=== PATIENT | female | born 1940 | race Caucasian/White ===

== ENCOUNTER → 2017-12-04 08:34 | Outpatient (CLI) | payer SELFPAY ==
[2017-12-04 09:31] LABS: Add Manual Diff / Slide Review NO; Basophils Percent Auto 1.3 % (0-2); Eosinophils Percent Auto 4.7 % (2-4); Hematocrit 40.7 % (36-46); Hemoglobin 13.9 g/dL (12.0-16.0); Lymphocytes Percent Auto 42.2 % (25-40); Mean Corpuscular HGB Conc 34.2 % (30-36); Mean Corpuscular Hemoglobin 31.1 PG (26-34); Monocytes Percent Auto 10.3 % (3-14); Neutrophils Absolute Auto 2300 /uL (3000-5900); Neutrophils Percent Auto 41.5 % (50-75); Platelet Count 260 X10^3/uL (150-400); Red Blood Cell Count 4.47 X10^6/uL (4.0-5.2); Red Cell Distribution Width 12.8 % (11.6-14.8); White Blood Cell Count 5.5 X10^3/uL (4.5-11.0)
[2017-12-04 10:27] LABS: Vitamin D 25 Hydroxy (D3) 47.2 ng/mL (30.0-100.0)
[2017-12-04 10:42] LABS: Thyroid Stimulating Hormone 2.91 uIU/mL (0.47-4.68)
[2017-12-04 13:41] LABS: Free T3, Triiodothyronine Free 3.55 pg/mL (2.77-5.27); Free T4, Direct Thyroxine 1.34 ng/dL (0.78-2.19)
== END ==
PROVIDERS: PCP Physician Assistant
DX: R53.83 Other fatigue (principal)
CPT/HCPCS: 36415; 82306; 82728; 84439; 84443; 84481; 85025

== ENCOUNTER 2018-03-09 11:37 | Emergency (ER) | payer MEDICARE, OTHER, SELFPAY ==
[2018-03-09 11:47] VITALS: BP 194/71; PULSE 73; RESP 17; TEMP 36.4; O2SAT 100; BMI 24.7
--- NOTE | 2018-03-09 11:55 | DI.RAD.S_ITS ---
PROCEDURE: XR CHEST 1V INDICATIONS: chest pain TECHNIQUE: One view of the chest was acquired. COMPARISON: [facility], , CHEST 1 VIEW, 01/16/2017, 18:02. FINDINGS: Surgical changes and devices: None. Lungs and pleura: No pleural effusions or pneumothorax. Lungs are clear. Mediastinum: Mediastinal contours appear normal. Heart size is normal. Bones and chest wall: No suspicious bony lesions. Overlying soft tissues appear unremarkable. IMPRESSION: Chest pain is not seen. Dictated by: Flo Kitchen M.D. on 03/09/2018 at 12:28 Approved by: Flo Kitchen M.D. on 03/09/2018 at 12:28
[2018-03-09 12:09] LABS: Add Manual Diff / Slide Review NO; Basophils Percent Auto 0.9 % (0-2); Eosinophils Percent Auto 1.8 % (2-4); Hematocrit 39.4 % (36-46); Hemoglobin 13.2 g/dL (12.0-16.0); Lymphocytes Percent Auto 31.4 % (25-40); Mean Corpuscular HGB Conc 33.4 % (30-36); Mean Corpuscular Hemoglobin 30.9 PG (26-34); Mean Corpuscular Volume 92.3 fL (80-100); Monocytes Percent Auto 8.3 % (3-14); Neutrophils Absolute Auto 3700 /uL (3000-5900); Neutrophils Percent Auto 57.6 % (50-75); Platelet Count 250 X10^3/uL (150-400); Red Blood Cell Count 4.27 X10^6/uL (4.0-5.2); Red Cell Distribution Width 13.3 % (11.6-14.8); White Blood Cell Count 6.4 X10^3/uL (4.5-11.0)
--- NOTE | 2018-03-09 12:12 | ED_ITS ---
HPI - Chest Pain <Antonietta Beltre PA-C - Last Filed: 03/09/18 22:07> General Chief Complaint: Chest Pain Stated Complaint: 'SOMETHING FUNNY IN CHEST' Time Seen by Provider: 03/09/18 12:09 Source: patient Mode of arrival: ambulatory Limitations: no limitations History of Present Illness HPI narrative: This 77-year-old female comes in today due to which she describes as a mild ache in her chest over a week. She describes this as around the ?esophagus? and points to mid and upper sternal area. She states that she has not had any associated dyspnea, lightheadedness, wheeze, nausea or vomiting and states ?I am eating way to well?. She states pain does not radiate. She states that she will occasionally notice a single hard heartbeat, otherwise no palpitations. She states that pain worsens up it after she eats certain foods such as caffeine, spicy food, or chocolate. She states it also worsens if she has to think about driving a long distance (notes that she has been driving to [facility] a couple of times weekly for physical therapy). She states that pain is better when she is around people and active. Then she does not tend to notice it, does not keep her from activity. She tends to notice more when she is quiet or at night. She denies any other new symptoms on systems review such as pain or swelling in her extremities. She does note that she has a history of anxiety and wonders whether this could be related as she has had some increase in stress. She does have some history of acid reflux occasionally and is careful not to eat before bedtime. She states that she has tried half of a Xanax couple of times which she takes occasionally and that does seem to help. Related Data Home Medications Medication Instructions Recorded Confirmed ascorbic acid (vitamin C) [Vitamin 1 g PO BID 03/09/18 03/09/18 C] cholecalciferol (vitamin D3) 5,000 unit PO DAILY 03/09/18 03/09/18 [Vitamin D3] multivitamin 1 tab PO DAILY 03/09/18 03/09/18 omega 6-yfy-gps-fish oil [Fish Oil] 1,000 mg PO BID 03/09/18 03/09/18 resveratrol 1 cap PO QPM 10/10/18 10/10/18 Allergies Allergy/AdvReac Type Severity Reaction Status Date / Time Sulfa (Sulfonamide Allergy Unknown Verified 10/14/17 08:03 Antibiotics) [SULFA (SULFONAMIDE ANTIBIOTICS)] adhesive tape Allergy Verified 10/14/17 08:04 Review of Systems <Antonietta Beltre PA-C - Last Filed: 03/09/18 22:07> Review of Systems All systems reviewed & are unremarkable except as noted in HPI and below PFSH <ALEX Merino Last Filed: 03/09/18 22:07> Comment: Quit late , denies ETOH or street drugs Exam <Antonietta Beltre PA-C - Last Filed: 03/09/18 22:07> Narrative Exam Narrative: GENERAL APPEARANCE: Patient sitting comfortably, in no distress , appears well. HEENT: PERRL, EOMI, conjunctiva, normal oropharynx NECK/THYROID: Neck supple, no JVD. LUNGS: Clear to auscultation bilaterally. HEART: Regular rate and rhythm without murmur, normal S1, S2, no S3 or S4. ABDOMEN: Soft, NT, ND, + BS x 4 quadrants EXTREMITIES: No cyanosis or edema. No calf tenderness NEUROLOGIC: Alert and oriented, normal speech, gait and coordination. Initial Vital Signs Initial Vital Signs: Vital Signs Temperature 97.5 F L 03/09/18 11:47 Pulse Rate 73 03/09/18 11:47 Respiratory Rate 17 03/09/18 11:47 Blood Pressure 194/71 H 03/09/18 11:47 Pulse Oximetry 100 03/09/18 11:47 <Nikhil Mansfield DO - Last Filed: 03/10/18 15:42> Initial Vital Signs Initial Vital Signs: Vital Signs Temperature 97.5 F L 03/09/18 11:47 Pulse Rate 73 03/09/18 11:47 Respiratory Rate 17 03/09/18 11:47 Blood Pressure 194/71 H 03/09/18 11:47 Pulse Oximetry 100 03/09/18 11:47 Scores <ALEX Merino Last Filed: 03/09/18 22:07> HEART Score Heart Score history: Slightly Suspicious Heart Score EKG: Normal Heart Score Age: > or = 65 years old Heart Score risk factors: No known risk factors Heart Score troponin: < or = to normal limit Heart Score Total: 2 Course <Antonietta Beltre PA-C - Last Filed: 03/09/18 22:07> Additional Information: Patient reported some improvement after GI cocktail though she was not having much discomfort. She did report a couple of skipped heartbeats correlating with what look like either 2 or 3 premature beat versus a very brief run of atrial fibrillation. Discussed follow-up with PCP to talk about placing a Holter monitor or [employer] type monitor that she can activate when symptomatic. She is agreeable with this as well as plan to start ASA and Pepcid in the interim, and to return if any acutely worsening symptoms or new symptoms in the interim Orders Ordered: Discontinued Medications Al Hydrox/Mg Hydrox/Simethicone 20 ml/ Lidocaine HCl 15 ml 0 ml PO NOW ONE Stop: 03/09/18 12:28 Last Admin: 03/09/18 12:34 Dose: 35 ml Vital Signs - 8 hr 03/09/18 14:51 Temperature 97.8 F Pulse Rate 71 Respiratory Rate 16 Blood Pressure 161/62 H Pulse Oximetry 98 <Nikhil Mansfield DO - Last Filed: 03/10/18 15:42> Orders Ordered: Discontinued Medications Al Hydrox/Mg Hydrox/Simethicone 20 ml/ Lidocaine HCl 15 ml 0 ml PO NOW ONE Stop: 03/09/18 12:28 Last Admin: 03/09/18 12:34 Dose: 35 ml Vital Signs - 8 hr 03/09/18 14:51 Temperature 97.8 F Pulse Rate 71 Respiratory Rate 16 Blood Pressure 161/62 H Pulse Oximetry 98 MDM - Chest Pain <Antonietta Beltre PA-C - Last Filed: 03/09/18 22:07> Lab Data Result diagrams: 03/09/18 11:58 03/09/18 11:58 Lab Results 03/09/18 03/09/18 Range/Units 11:58 11:58 WBC 6.4 (4.5-11.0) X10^3/uL RBC 4.27 (4.0-5.2) X10^6/uL Hgb 13.2 (12.0-16.0) g/dL Hct 39.4 (36-46) % MCV 92.3 (80-100) fL MCH 30.9 (26-34) PG MCHC 33.4 (30-36) % RDW 13.3 (11.6-14.8) % Plt Count 250 (150-400) X10^3/uL Neut % (Auto) 57.6 (50-75) % Lymph % (Auto) 31.4 (25-40) % Guthrie % (Auto) 8.3 (3-14) % Eos % (Auto) 1.8 L (2-4) % Baso % (Auto) 0.9 (0-2) % Neut # (Auto) 3700 (6353-4709) /uL Sodium 143 (137-145) mmol/L Potassium 4.1 (3.4-5.1) mmol/L Chloride 105 (98-107) mmol/L Carbon Dioxide 28 (22-32) mmol/L BUN 29 H (7-17) mg/dL Creatinine 0.70 (0.52-1.04) mg/dL Estimated GFR > 60.0 (>60) mL/min BUN/Creatinine Ratio 41.4 H (6-22) Glucose 92 (80-110) mg/dL Calcium 10.1 (8.4-10.2) mg/dL Troponin I < 0.012 (0.01-0.034) ng/mL Lipase 83 (23-300) U/L Imaging Data Chest x-ray: Radiologist's impression: [address] [address] XRay Report Signed Patient: Trinidad Linton EMR#: [id number] : 8Acct:[id number] Age/Sex: 77 / FDate of Service: 03/09/18 Loc: ED Accession Number: [id number] Procedure: XR chest 1V Ordering Provider: Nikhil Mansfield D.O. PROCEDURE: XR CHEST 1V INDICATIONS: chest pain TECHNIQUE: One view of the chest was acquired. COMPARISON: [facility], CHEST 1 VIEW, 01/16/2017, 18:02. FINDINGS: Surgical changes and devices: None. Lungs and pleura: No pleural effusions or pneumothorax. Lungs are clear. Mediastinum: Mediastinal contours appear normal. Heart size is normal. Bones and chest wall: No suspicious bony lesions. Overlying soft tissues appear unremarkable. IMPRESSION: Chest pain is not seen. Dictated by: Flo Kitchen M.D. on 03/09/2018 at 12:28 Approved by: Flo Kitchen M.D. on 03/09/2018 at 12:28 ECG Data Attestation: I personally reviewed and interpreted this ECG as follows: (Normal sinus rhythm with rate 68, LAD some old Q-waves present in the anterior leads, unchanged from 03/16) Prior ECG tracings: available for review <Nikhil Mansfield DO - Last Filed: 03/10/18 15:42> Lab Data Lab Results 03/09/18 03/09/18 Range/Units 11:58 11:58 WBC 6.4 (4.5-11.0) X10^3/uL RBC 4.27 (4.0-5.2) X10^6/uL Hgb 13.2 (12.0-16.0) g/dL Hct 39.4 (36-46) % MCV 92.3 (80-100) fL MCH 30.9 (26-34) PG MCHC 33.4 (30-36) % RDW 13.3 (11.6-14.8) % Plt Count 250 (150-400) X10^3/uL Neut % (Auto) 57.6 (50-75) % Lymph % (Auto) 31.4 (25-40) % Guthrie % (Auto) 8.3 (3-14) % Eos % (Auto) 1.8 L (2-4) % Baso % (Auto) 0.9 (0-2) % Neut # (Auto) 3700 (1415-4992) /uL Sodium 143 (137-145) mmol/L Potassium 4.1 (3.4-5.1) mmol/L Chloride 105 (98-107) mmol/L Carbon Dioxide 28 (22-32) mmol/L BUN 29 H (7-17) mg/dL Creatinine 0.70 (0.52-1.04) mg/dL Estimated GFR > 60.0 (>60) mL/min BUN/Creatinine Ratio 41.4 H (6-22) Glucose 92 (80-110) mg/dL Calcium 10.1 (8.4-10.2) mg/dL Troponin I < 0.012 (0.01-0.034) ng/mL Lipase 83 (23-300) U/L Discharge Plan Departure Patient Disposition: Home Clinical Impression: Chest pain at rest, Intermittent palpitations, Acid reflux Discharge Date/Time: 03/09/18 14:52 Interventions: ED Discharge Assessment Last Done: 03/09/18 14:51 Instructions: DI for Atypical Chest Pain, DI for Palpitations Activity Restrictions/Additional Instructions: Your chest pain does not appear to be related to lack of oxygen/heart attack type symptoms today on your exam findings or studies. You do have some premature heartbeats noted rarely on your rhythm testing, and as we talked about , you should see your PCP about getting a monitor for this, you should follow- up within a week or less. You should return as we talked about if you have any acutely worsening symptoms in the interim. Since you have had some reflux symptoms and food sensitivities maybe making this worse, please start taking Pepcid (famotidine) 20 mg once daily. Please take a baby aspirin once daily as well while you are waiting for further workup on the skipped heartbeats. Continue your Xanax if you needed, and please keep track for your PCP of whether this is helpful for your symptoms or whether you notice few or skipped heart beats when you take that. Prescriptions: No Action multivitamin Tablet 1 tab PO DAILY RF: 0 ascorbic acid (vitamin C) [Vitamin C] 1,000 mg Tablet 1 g PO BID RF: 0 cholecalciferol (vitamin D3) [Vitamin D3] 5,000 unit Tablet 5,000 unit PO DAILY RF: 0 omega 2-nau-atf-fish oil [Fish Oil] 1,000 mg (120 mg-180 mg) Capsule 1,000 mg PO BID RF: 0 resveratrol 1 cap PO QPM RF: 0 Referrals: [facility] [Outside] Kelly Mccormick PA-C [Advanced Surgery Specialist] - <Nikhil Mansfield DO - Last Filed: 03/10/18 15:42> Cosign ED Attending Ana Maria Attestation: I was available for consultation for this patients ED stay.
[2018-03-09 12:20] LABS: BUN Creatinine Ratio 41.4 (6-22); Blood Urea Nitrogen 29 mg/dL (7-17); Calcium 10.1 mg/dL (8.4-10.2); Carbon Dioxide 28 mmol/L (22-32); Chloride 105 mmol/L (98-107); Estimated Glomerular Filt Rate > 60.0 mL/min (>60); Glucose 92 mg/dL (80-110); HEMOLYSIS < 15 (0-50); Potassium 4.1 mmol/L (3.4-5.1); Sodium 143 mmol/L (137-145)
[2018-03-09 12:30] VITALS: BP 189/63; PULSE 61; RESP 18; O2SAT 99
[2018-03-09] MEDS: MAG HYDROX/ALUMINUM/SIMETH SUS 20 ML, LIDOCAINE VISCOUS 2% 15 ML PO (12:34)
[2018-03-09 12:36] LABS: Troponin I < 0.012 ng/mL (0.01-0.034)
[2018-03-09 13:00] VITALS: BP 161/61; PULSE 62; PULSE 63; RESP 15; RESP 16; O2SAT 98; O2SAT 99
[2018-03-09 13:30] VITALS: BP 158/60; PULSE 65; RESP 15; O2SAT 95
[2018-03-09 13:41] LABS: Lipase 83 U/L (23-300)
[2018-03-09 14:00] VITALS: BP 175/57; PULSE 66; PULSE 70; RESP 16; RESP 17; O2SAT 96; O2SAT 98
[2018-03-09 14:51] VITALS: BP 161/62; PULSE 71; RESP 16; TEMP 36.6; O2SAT 98
== END 2018-03-09 14:52 | disposition home or self-care (01) ==
PROVIDERS: Emergency Medicine; Emergency Provider Internal Medicine
DX: R07.9 Chest pain, unspecified (principal); R00.2 Palpitations; K21.9 Gastro-esophageal reflux disease without esophagitis
CPT/HCPCS: 36591; 71045; 80048; 83690; 84484; 85025; 93005; 99283; 99285

== ENCOUNTER 2018-07-07 19:09 | Emergency (ER) | payer MEDICARE, OTHER, SELFPAY ==
[2018-07-07 19:13] VITALS: BP 182/91; PULSE 107; RESP 16; TEMP 36.1; O2SAT 100; BMI 25.6
--- NOTE | 2018-07-07 19:17 | DI.RAD.S_ITS ---
PROCEDURE: XR CHEST 2V INDICATIONS: fell onto chest TECHNIQUE: 2 views of the chest were acquired. COMPARISON: None. FINDINGS: Surgical changes and devices: None. Lungs and pleura: Lungs are clear. No pleural effusions or pneumothorax. Mediastinum: Mediastinal contours are normal. Heart size is normal. Bones and chest wall: No suspicious bony abnormalities. Soft tissues appear unremarkable. IMPRESSION: No pneumothorax seen, no trauma found. Dictated by: Flo Kitchen M.D. on 07/07/2018 at 20:00 Approved by: Flo Kitchen M.D. on 07/07/2018 at 20:00
--- NOTE | 2018-07-07 20:07 | ED_ITS ---
HPI - Fall General Chief Complaint: Fall Stated Complaint: guanaco hit her face Time Seen by Provider: 07/07/18 19:46 Source: patient Mode of arrival: ambulatory Limitations: no limitations History of Present Illness HPI Narrative: patient is a mil[place] 78-year-old female who presents with sternal chest pain. She says that she tripped and fell on a chair, landing directly on her sternum. She has no shortness of breath it hurts when she breathes is and touches it. This happened 1 hr ago. No other injuries. She did not hit her head is no extremity Onset (ago): hour(s) (1) Fall from: standing Fall witnessed: no Place fall occurred: home Loss of consciousness: none Prolonged down time: no Symptoms prior to fall: none Context: tripped/slipped Location of injury: chest Related Data Home Medications Medication Instructions Recorded Confirmed ascorbic acid (vitamin C) [Vitamin 1 g PO BID 03/09/18 03/15/18 C] cholecalciferol (vitamin D3) 5,000 unit PO DAILY 03/09/18 03/15/18 [Vitamin D3] multivitamin 1 tab PO DAILY 03/09/18 03/15/18 omega 4-wuo-dft-fish oil [Fish Oil] 1,000 mg PO BID 03/09/18 03/15/18 resveratrol 1 cap PO QPM 03/09/18 03/15/18 alprazolam 0.25 mg tablet 0.25 mg PO BID 03/15/18 03/15/18 Previous Rx's Medication Instructions Recorded propranolol 10 mg tablet 10 mg PO BID #60 tab 03/15/18 Allergies Allergy/AdvReac Type Severity Reaction Status Date / Time Sulfa (Sulfonamide Allergy Unknown Verified 07/07/18 19:13 Antibiotics) [SULFA (SULFONAMIDE ANTIBIOTICS)] adhesive tape Allergy Verified 10/14/17 08:04 Review of Systems Review of Systems ROS Unobtainable: All systems reviewed & are unremarkable except as noted in HPI and below Cardiovascular Reports chest pain, Denies dyspnea and Denies dyspnea on exertion Respiratory Denies cough, Denies dyspnea, Denies dyspnea on exertion and Denies wheezing Gastrointestinal Gastrointestinal: Denies abdominal pain, Denies change in bowel habits, Denies diarrhea, Denies nausea and Denies vomiting Musculoskeletal Denies back pain, Denies muscle weakness, Denies numbness and Denies tingling Integumentary/Breasts Denies pruritus, Denies erythema, Denies rash and Denies wounds Neurologic Denies numbness and Denies tingling Allergic/Immunologic Denies wheezing Exam Initial Vital Signs Initial Vital Signs: Vital Signs Temperature 97.0 F L 07/07/18 19:13 Pulse Rate 107 H 07/07/18 19:13 Respiratory Rate 16 07/07/18 19:13 Blood Pressure 182/91 H 07/07/18 19:13 Pulse Oximetry 100 07/07/18 19:13 GENERAL: Alert well-appearing elderly feet HEENT: Head atraumatic,EOMI, pupils reactive, face symmetric, neck is supple CARDIOVASCULAR: Regular rate and rhythm without murmurs, rubs or gallops. sternum is tenderness no sign of trauma no bruising no rib pain RESPIRATORY: Breath sounds equal bilaterally, no wheezes rales or rhonchi. ABDOMEN: Soft, nontender. Normoactive bowel sounds all 4 quadrants. No guarding or rebound. : No CVA tenderness EXTREMITIES: Normal range of motion, no clubbing or edema. Neurovascularly intact NEUROLOGICAL: Alert and oriented x4.Normal gait and speech. Cranial nerves II through XII grossly intact. [Good [id number], good kgld-su-vjus, strength equal bilaterally, no dysarthria or aphasia, sensation in tact to soft touch bilaterally, no visual changes, no facial droop] SKIN: Warm, dry, no laceration, no petechiae, no rashes or lesions. [facility] Medical History Anxiety (Chronic) Mild acid reflux (Chronic) Surgical History H/O partial thyroidectomy (Resolved) History of carpal tunnel repair Status post hysterectomy Family History Father Diabetes mellitus Mother Ovarian cancer Social History Smoking Status: Former smoker Family History Father Diabetes mellitus Mother Ovarian cancer Social History Smoking Status: Former smoker Course Orders Ordered: ED Orders 07/07/18 19:17 Chest [XR chest 2V] Stat Vital Signs - 8 hr 07/07/18 19:13 Temperature 97.0 F L Pulse Rate 107 H Respiratory Rate 16 Blood Pressure 182/91 H Pulse Oximetry 100 MDM - Fall Imaging Data Chest x-ray: Radiologist's impression: PROCEDURE: XR CHEST 2V INDICATIONS: fell onto chest TECHNIQUE: 2 views of the chest were acquired. COMPARISON: None. FINDINGS: Surgical changes and devices: None. Lungs and pleura: Lungs are clear. No pleural effusions or pneumothorax. Mediastinum: Mediastinal contours are normal. Heart size is normal. Bones and chest wall: No suspicious bony abnormalities. Soft tissues appear unremarkable. IMPRESSION: No pneumothorax seen, no trauma found. Dictated by: Flo Kitchen M.D. on 07/07/2018 at 20:00 Discharge Plan Departure Patient Disposition: Home Clinical Impression: Contusion of sternum Qualifiers: Encounter type: initial encounter Qualified Code(s): S20.20XA - Contusion of thorax, unspecified, initial encounter Discharge Date/Time: 07/07/18 20:12 Interventions: ED Discharge Assessment Last Done: 07/07/18 20:11 Instructions: DI for Sternum Contusion Activity Restrictions/Additional Instructions: *You have been diagnosed with sternal pain contusion *What to do: rest, ice *Continue to take medications as directed Tylenol 650 mg every 4-6 hours if needed for pain ibuprofen 400 mg every 6-8 hours if needed for pain *Follow up with your primary care provider in 2-3 days *Return to ER if you should have any new, worsening or concerning symptoms Prescriptions: No Action alprazolam 0.25 mg tablet 0.25 mg PO BID RF: 0 propranolol 10 mg tablet 10 mg PO BID Qty: 60 RF: 3 multivitamin Tablet 1 tab PO DAILY RF: 0 ascorbic acid (vitamin C) [Vitamin C] 1,000 mg Tablet 1 g PO BID RF: 0 cholecalciferol (vitamin D3) [Vitamin D3] 5,000 unit Tablet 5,000 unit PO DAILY RF: 0 omega 3-vvj-nvc-fish oil [Fish Oil] 1,000 mg (120 mg-180 mg) Capsule 1,000 mg PO BID RF: 0 resveratrol 1 cap PO QPM RF: 0 Referrals: Jayson Marr MD [Primary Care Provider] -
== END 2018-07-07 20:12 | disposition home or self-care (01) ==
PROVIDERS: Emergency Provider Emergency Medicine; PCP Student in an Organized Health Care Education/Training Program
DX: S20.20XA Contusion of thorax, unspecified, initial encounter (principal); W01.0XXA Fall on same level from slipping, tripping and stumbling without subsequent striking against object, initial encounter
CPT/HCPCS: 71046; 99282; 99283

== ENCOUNTER 2018-07-12 15:49 | Emergency (ER) | payer MEDICARE, OTHER, SELFPAY ==
[2018-07-12 16:03] VITALS: BP 188/84; PULSE 109; RESP 16; TEMP 36.2; O2SAT 99; BMI 25.6
--- NOTE | 2018-07-12 16:17 | PC.NURSE ---
pt requested not to be seen by dr harden.
[2018-07-12 18:54] VITALS: BP 187/69; PULSE 105; RESP 19; O2SAT 96
--- NOTE | 2018-07-12 19:05 | ED_ITS ---
HPI - Headache <EDWIN Goode - Last Filed: 07/12/18 21:40> General Chief Complaint: Headache Stated Complaint: HEADACHE FLUSHED FACE Time Seen by Provider: 07/12/18 19:12 Source: patient Mode of arrival: ambulatory Limitations: no limitations History of Present Illness HPI Narrative: 78-year-old female with history migraine headaches and is a nonsmoker here for complaint of having pain to her right ribcage and right lower ribcage/abdominal area after a fall several days ago. She was seen here in the emergency room and had x-rays of the right ribcage she was negative for any fractures. She reports that the pain has not resolved. She also reports she has headache pain as well. She denies any head injury during the fall however she does state that her head did get stabbed pretty good. She denies being on any blood thinners. She denies any stressors or relievers of her pain. She is ambulatory into the emergency room. Patient also requests she has carbon monoxide testing as she has been using her propane fireplace more with the cold weather. No other concerns or complaints at this timeframe. She denies any neck pain. MD Complaint: headache Related Data Home Medications Medication Instructions Recorded Confirmed ascorbic acid (vitamin C) [Vitamin 1 g PO BID 03/09/18 03/15/18 C] cholecalciferol (vitamin D3) 5,000 unit PO DAILY 03/09/18 03/15/18 [Vitamin D3] multivitamin 1 tab PO DAILY 03/09/18 03/15/18 omega 5-jwj-hgq-fish oil [Fish Oil] 1,000 mg PO BID 03/09/18 03/15/18 resveratrol 1 cap PO QPM 03/09/18 03/15/18 alprazolam 0.25 mg tablet 0.25 mg PO BID 03/15/18 03/15/18 Previous Rx's Medication Instructions Recorded propranolol 10 mg tablet 10 mg PO BID #60 tab 03/15/18 Allergies Allergy/AdvReac Type Severity Reaction Status Date / Time Sulfa (Sulfonamide Allergy Unknown Verified 07/12/18 16:08 Antibiotics) [SULFA (SULFONAMIDE ANTIBIOTICS)] adhesive tape Allergy Verified 07/12/18 16:08 Review of Systems <EDWIN Goode - Last Filed: 07/12/18 21:40> Constitutional Denies chills, Denies fatigue, Denies fever(s), Denies lethargy and Denies wea kness Eyes Denies change in vision, Denies eye discharge, Denies irritation and Denies loss of vision ENT Ears, Nose, Mouth, and Throat: Denies change in voice, Denies neck pain and Denies sore throat Cardiovascular Denies dyspnea and Denies dyspnea on exertion Respiratory Denies cough, Denies dyspnea, Denies dyspnea on exertion and Denies wheezing Gastrointestinal Comments: Pain into a right upper quadrant/right ribcage area Genitourinary Denies hematuria, Denies flank pain, Denies urinary incontinence and Denies urinary urgency Musculoskeletal Denies neck pain Integumentary/Breasts Denies pruritus, Denies erythema, Denies rash and Denies wounds Neurologic Denies confusion, Denies loss of vision and Denies weakness Comments: headache Psychiatric Denies anxiety, Denies confusion, Denies depression, Denies homicidal ideation and Denies suicidal ideation Endocrine Denies fatigue and Denies flushing Hematologic/Lymphatic Denies easy bruising Allergic/Immunologic Denies wheezing PFSH <EDWIN Goode - Last Filed: 07/12/18 21:40> Social History Smoking Status: Former smoker Exam <EDWIN Goode - Last Filed: 07/12/18 21:40> Initial Vital Signs Initial Vital Signs: Vital Signs Temperature 97.1 F L 07/12/18 16:03 Pulse Rate 109 H 07/12/18 16:03 Respiratory Rate 16 07/12/18 16:03 Blood Pressure 188/84 H 07/12/18 16:03 Pulse Oximetry 99 07/12/18 16:03 Const General: cooperative and well developed Nutritional Appearance: well nourished Orientation: alert, awake, oriented x3 and not confused [facility] Head: normal to inspection, normocephalic, atraumatic, No Drummond's sign, No contusion, No hematoma, No laceration, No palpable skull fracture, No raccoon eyes, No scalp lesion and No scalp tenderness Mouth: oral mucosae normal and moist mucous membranes Throat: posterior oropharynx normal Eyes General: appearance normal, both eyes and all related structures Eyelids: eyelids normal Conjunctivae: conjunctivae normal Sclera: sclerae normal Pupils: PERRL EOM: EOM intact bilaterally Neck Neck: normal visual inspection, trachea midline, No lymphadenopathy, No midline deformity and No JVD Lymphatic: No lymphedema Chest Other: Tenderness to the right lateral ribcage. No signs of trauma. No ec chymosis. No deformities. Resp Effort & Inspection: normal respiratory effort, able to speak in complete sentences, no respiratory distress and no use of accessory muscles Auscultation: clear to auscultation bilaterally, no rales, no rhonchi and no wheezes Cardio Rate: regular rate Rhythm: regular rhythm Heart Sounds: no click, no gallops, no murmurs and no rubs Pulses: normal peripheral pulses GI Inspection: non-distended Palpation: soft, no hepatosplenomegaly, No guarding, No pulsatile mass and No tender Auscultation: normal bowel sounds Other: Tenderness on palpation to right Skin General: no rashes or lesions noted, No jaundice and No petechiae Neuro General: alert, oriented x3, gait normal and no focal motor deficits Speech: speech normal <Pilar Szymanski DO - Last Filed: 07/13/18 02:33> Initial Vital Signs Initial Vital Signs: Vital Signs Temperature 97.1 F L 07/12/18 16:03 Pulse Rate 109 H 07/12/18 16:03 Respiratory Rate 16 07/12/18 16:03 Blood Pressure 188/84 H 07/12/18 16:03 Pulse Oximetry 99 07/12/18 16:03 Course <EDWIN Goode - Last Filed: 07/12/18 21:40> Orders Ordered: ED Orders 07/12/18 19:23 CT abdomen pelvis w con Stat CT head/brain wo con Stat 07/12/18 19:45 Complete Blood Count AUTO DIFF Stat Comprehensive Metabolic Panel Stat [facility] Miscellaneous Stat Urine Culture Stat Urine Microscopic Stat Discontinued Medications Oxymetazoline HCl (Afrin) 2 sprays NASAL NOW ONE Stop: 07/12/18 20:29 Last Admin: 07/12/18 20:48 Dose: 2 sprays Vital Signs - 8 hr 07/12/18 18:54 07/12/18 19:50 07/12/18 21:40 Pulse Rate 105 H 91 H 90 Respiratory Rate 19 18 16 Blood Pressure 171/72 H Blood Pressure [Right Arm] 187/69 H 170/76 H Pulse Oximetry 96 96 97 <Pilar Szymanski DO - Last Filed: 07/13/18 02:33> Orders Ordered: ED Orders 07/12/18 19:23 CT abdomen pelvis w con Stat CT head/brain wo con Stat 07/12/18 19:45 Complete Blood Count AUTO DIFF Stat Comprehensive Metabolic Panel Stat [facility] Miscellaneous Stat Urine Culture Stat Urine Microscopic Stat Discontinued Medications Oxymetazoline HCl (Afrin) 2 sprays NASAL NOW ONE Stop: 07/12/18 20:29 Last Admin: 07/12/18 20:48 Dose: 2 sprays Vital Signs - 8 hr 07/12/18 18:54 07/12/18 19:50 07/12/18 21:40 Pulse Rate 105 H 91 H 90 Respiratory Rate 19 18 16 Blood Pressure 171/72 H Blood Pressure [Right Arm] 187/69 H 170/76 H Pulse Oximetry 96 96 97 MDM - Headache <EDWIN Goode - Last Filed: 07/12/18 21:40> Lab Data Result diagrams: 07/12/18 19:45 07/12/18 19:45 Lab Results 07/12/18 07/12/18 07/12/18 Range/Units 19:45 19:45 19:45 WBC 7.2 (4.5-11.0) X10^3/uL RBC 4.67 (4.0-5.2) X10^6/uL Hgb 14.7 (12.0-16.0) g/dL Hct 42.6 (36-46) % MCV 91.3 (80-100) fL MCH 31.5 (26-34) PG MCHC 34.4 (30-36) % RDW 12.8 (11.6-14.8) % Plt Count 291 (150-400) X10^3/uL Neut % (Auto) 57.2 (50-75) % Lymph % (Auto) 31.4 (25-40) % [place] % (Auto) 8.9 (3-14) % Eos % (Auto) 1.5 L (2-4) % Baso % (Auto) 1.0 (0-2) % Neut # (Auto) 4100 (9241-3621) /uL Lymph # (Auto) 2300 (7813-6054) /uL [place] # (Auto) 600 (0-900) /uL Eos # (Auto) 100 (0-450) /uL Baso # (Auto) 100 (0-100) /uL Carboxyhemoglobin Cancelled Sodium 142 (137-145) mmol/L Potassium 3.7 (3.4-5.1) mmol/L Chloride 103 (98-107) mmol/L Carbon Dioxide 27 (22-32) mmol/L BUN 21 H (7-17) mg/dL Creatinine 0.90 (0.52-1.04) mg/dL Estimated GFR > 60.0 (>60) mL/min BUN/Creatinine Ratio 23.3 H (6-22) Glucose 97 (80-110) mg/dL Calcium 10.0 (8.4-10.2) mg/dL Total Bilirubin 0.5 (0.2-1.3) mg/dL AST 33 (14-36) IU/L ALT 45 (9-52) IU/L Alkaline Phosphatase 74 (38-126) U/L Total Protein 8.3 H (6.3-8.2) g/dL Albumin 4.8 (3.5-5.0) g/dL Globulin 3.5 (1.7-4.1) g/dL Albumin/Globulin Ratio 1.4 (1.0-2.8) Urine RBC (0-5/HPF) Urine WBC (0-5/HPF) Urine Bacteria (None) Ur Culture Indicated? 07/12/18 Range/Units 19:45 WBC (4.5-11.0) X10^3/uL RBC (4.0-5.2) X10^6/uL Hgb (12.0-16.0) g/dL Hct (36-46) % MCV (80-100) fL MCH (26-34) PG MCHC (30-36) % RDW (11.6-14.8) % Plt Count (150-400) X10^3/uL Neut % (Auto) (50-75) % Lymph % (Auto) (25-40) % [place] % (Auto) (3-14) % Eos % (Auto) (2-4) % Baso % (Auto) (0-2) % Neut # (Auto) (0230-6886) /uL Lymph # (Auto) (5215-8328) /uL [place] # (Auto) (0-900) /uL Eos # (Auto) (0-450) /uL Baso # (Auto) (0-100) /uL Carboxyhemoglobin Sodium (137-145) mmol/L Potassium (3.4-5.1) mmol/L Chloride (98-107) mmol/L Carbon Dioxide (22-32) mmol/L BUN (7-17) mg/dL Creatinine (0.52-1.04) mg/dL Estimated GFR (>60) mL/min BUN/Creatinine Ratio (6-22) Glucose (80-110) mg/dL Calcium (8.4-10.2) mg/dL Total Bilirubin (0.2-1.3) mg/dL AST (14-36) IU/L ALT (9-52) IU/L Alkaline Phosphatase (38-126) U/L Total Protein (6.3-8.2) g/dL Albumin (3.5-5.0) g/dL Globulin (1.7-4.1) g/dL Albumin/Globulin Ratio (1.0-2.8) Urine RBC None seen (0-5/HPF) Urine WBC 5-10/hpf H (0-5/HPF) Urine Bacteria None seen (None) Ur Culture Indicated? Specimen cultured Urine Dip Bedside Urine Glucose Negative Bedside Urine Bilirubin - Negative Bedside Urine Ketone - Negative Urine Specific [place] 1.010 Bedside Urine Occult Blood - Negative Bedside Urine pH 6.0 Bedside Urine Protein - Negative Bedside Urine Urobilinogen - Negative Bedside Urine Nitrite - Negative Bedside Urine Leukocytes +/- [address] scan - head: Radiologist's impression: [address] [place] [id number] Scan Report Signed Patient: Trinidad Linton EMR#: [id number] : 8Acct:[id number] Age/Sex: 78 / FDate of Service: 07/12/18 Loc: ED Accession Number: [id number] Procedure: CT head/brain wo con Ordering Provider: Nelson Urena PROCEDURE: CT HEAD/BRAIN WO CON INDICATIONS: A ground level fall with headache TECHNIQUE: Noncontrast 4.5 mm thick angled axial sections acquired from the foramen magnum to the vertex, with coronal and sagittal reformats. For radiation dose reduction, the following was used: automated exposure control, adjustment of mA and/or kV according to patient size. COMPARISON: None. FINDINGS: Image quality: Excellent. CSF spaces: Basal cisterns are patent. No extra-axial fluid collections. The ventricles are symmetric in size and shape. Brain: No intracranial bleeds or masses. There is cerebral volume loss for age, with resultant ventricular and sulcal prominence. There are periventricular and deep white matter chronic small vessel ischemic changes. There is intracranial internal carotid artery atherosclerosis. Skull and face: Calvarium and visualized facial bones appear intact, without suspicious lesions. Sinuses: Visualized sinuses and mastoids are clear. 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 Dictated by: Flo Kitchen M.D. on 07/12/2018 at 21:11 Approved by: Flo Kitchen M.D. on 07/12/2018 at 21:11 CT scan - abdomen: Radiologist's impression: [place] [address] CT Scan Report Signed Patient: Trinidad Linton EMR#: [id number] : 1940cct:[id number] Age/Sex: 78 / FDate of Service: 07/12/18 Loc: ED Accession Number: [id number] Procedure: CT abdomen pelvis w con Ordering Provider: Nelson Urena PROCEDURE: CT ABDOMEN PELVIS W CON INDICATIONS: Ground level fall with pain to right chest and upper abdomen TECHNIQUE: After the administration of intravenous contrast, 5 mm thick sections acquired from the diaphragm to the symphysis. 5 mm coronal and sagittal reformats were acquired. For radiation dose reduction, the following was used: automated exposure control, adjustment of mA and/or kV according to patient size. COMPARISON: None. FINDINGS: Image quality: Excellent. ABDOMEN: Lung bases: Lung bases are clear. Heart size is normal. Solid organs: Liver is normal in size and enhancement. Gallbladder appears normal. Biliary system is non dilated. Pancreas enhances normally. Spleen is normal in size and enhancement. No adrenal nodules. Kidneys demonstrate normal size and enhancement, without hydronephrosis. Peritoneum and bowel: Bowel loops demonstrate normal wall thickness and caliber. No free fluid or air. Nodes and vessels: No retroperitoneal or mesenteric adenopathy by size criteria. Aorta and inferior vena cava are normal in size. Miscellaneous: No ventral hernias. PELVIS: Genitourinary: Bladder wall thickness is normal. Miscellaneous: No inguinal hernias or adenopathy. Bones: No suspicious bony lesions. No vertebral body compression fractures. IMPRESSION: No source of current pain after fall is not identified. Dictated by: Flo Kitchen M.D. on 07/12/2018 at 21:12 Approved by: Flo Kitchen M.D. on 07/12/2018 at 21:15 Chest x-ray: Radiologist's impression: [address] [address] XRay Report Signed Patient: Trinidad Linton EMR#: [id number] : 8Acct:[id number] Age/Sex: 78 / FDate of Service: 07/07/18 Loc: ED Accession Number: [id number] Procedure: XR chest 2V Ordering Provider: Pilar Szymanski D.O. PROCEDURE: XR CHEST 2V INDICATIONS: fell onto chest TECHNIQUE: 2 views of the chest were acquired. COMPARISON: None. FINDINGS: Surgical changes and devices: None. Lungs and pleura: Lungs are clear. No pleural effusions or pneumothorax. Mediastinum: Mediastinal contours are normal. Heart size is normal. Bones and chest wall: No suspicious bony abnormalities. Soft tissues appear unremarkable. IMPRESSION: No pneumothorax seen, no trauma found. Dictated by: Flo Kitchen M.D. on 07/07/2018 at 20:00 Approved by: Flo Kitchen M.D. on 07/07/2018 at 20:00 [facility] Narrative Medical decision making narrative: CT scan of the head was obtained was negative for any acute findings. CT scan abdomen pelvis was obtained was also negative for any acute findings. Chest x-ray was obtained few days ago and was negative for signs of fracture. CBC and Chem panel were obtained were unremarkable. Carbon monoxide testing was completed on the bedside machine and was at 3% which is in normal range. Confirmatory carboxyhemoglobin lab is sent to lab as a send out with results were available in the next few days. Patient instructed that the pain into the right ribcage is secondary to rib contusion and may take some time to heal use [id number] Tylenol or Motrin as needed for any discomfort. Headache after ground level fall presents as minor closed head injury and may also take some time for it to heal. Follow up with primary care for the next few days for re-evaluation. For any worsening symptoms return emergency room. <Pilar Stephon, DO - Last Filed: 07/13/18 02:33> Lab Data Lab Results 07/12/18 07/12/18 07/12/18 Range/Units 19:45 19:45 19:45 WBC 7.2 (4.5-11.0) X10^3/uL RBC 4.67 (4.0-5.2) X10^6/uL Hgb 14.7 (12.0-16.0) g/dL Hct 42.6 (36-46) % MCV 91.3 (80-100) fL MCH 31.5 (26-34) PG MCHC 34.4 (30-36) % RDW 12.8 (11.6-14.8) % Plt Count 291 (150-400) X10^3/uL Neut % (Auto) 57.2 (50-75) % Lymph % (Auto) 31.4 (25-40) % [place] % (Auto) 8.9 (3-14) % Eos % (Auto) 1.5 L (2-4) % Baso % (Auto) 1.0 (0-2) % Neut # (Auto) 4100 (4065-7038) /uL Lymph # (Auto) 2300 (4555-2632) /uL [place] # (Auto) 600 (0-900) /uL Eos # (Auto) 100 (0-450) /uL Baso # (Auto) 100 (0-100) /uL Carboxyhemoglobin Cancelled Sodium 142 (137-145) mmol/L Potassium 3.7 (3.4-5.1) mmol/L Chloride 103 (98-107) mmol/L Carbon Dioxide 27 (22-32) mmol/L BUN 21 H (7-17) mg/dL Creatinine 0.90 (0.52-1.04) mg/dL Estimated GFR > 60.0 (>60) mL/min BUN/Creatinine Ratio 23.3 H (6-22) Glucose 97 (80-110) mg/dL Calcium 10.0 (8.4-10.2) mg/dL Total Bilirubin 0.5 (0.2-1.3) mg/dL AST 33 (14-36) IU/L ALT 45 (9-52) IU/L Alkaline Phosphatase 74 (38-126) U/L Total Protein 8.3 H (6.3-8.2) g/dL Albumin 4.8 (3.5-5.0) g/dL Globulin 3.5 (1.7-4.1) g/dL Albumin/Globulin Ratio 1.4 (1.0-2.8) Urine RBC (0-5/HPF) Urine WBC (0-5/HPF) Urine Bacteria (None) Ur Culture Indicated? 07/12/18 Range/Units 19:45 WBC (4.5-11.0) X10^3/uL RBC (4.0-5.2) X10^6/uL Hgb (12.0-16.0) g/dL Hct (36-46) % MCV (80-100) fL MCH (26-34) PG MCHC (30-36) % RDW (11.6-14.8) % Plt Count (150-400) X10^3/uL Neut % (Auto) (50-75) % Lymph % (Auto) (25-40) % [place] % (Auto) (3-14) % Eos % (Auto) (2-4) % Baso % (Auto) (0-2) % Neut # (Auto) (7416-8960) /uL Lymph # (Auto) (8638-6719) /uL [place] # (Auto) (0-900) /uL Eos # (Auto) (0-450) /uL Baso # (Auto) (0-100) /uL Carboxyhemoglobin Sodium (137-145) mmol/L Potassium (3.4-5.1) mmol/L Chloride (98-107) mmol/L Carbon Dioxide (22-32) mmol/L BUN (7-17) mg/dL Creatinine (0.52-1.04) mg/dL Estimated GFR (>60) mL/min BUN/Creatinine Ratio (6-22) Glucose (80-110) mg/dL Calcium (8.4-10.2) mg/dL Total Bilirubin (0.2-1.3) mg/dL AST (14-36) IU/L ALT (9-52) IU/L Alkaline Phosphatase (38-126) U/L Total Protein (6.3-8.2) g/dL Albumin (3.5-5.0) g/dL Globulin (1.7-4.1) g/dL Albumin/Globulin Ratio (1.0-2.8) Urine RBC None seen (0-5/HPF) Urine WBC 5-10/hpf H (0-5/HPF) Urine Bacteria None seen (None) Ur Culture Indicated? Specimen cultured Urine Dip Bedside Urine Glucose Negative Bedside Urine Bilirubin - Negative Bedside Urine Ketone - Negative Urine Specific [place] 1.010 Bedside Urine Occult Blood - Negative Bedside Urine pH 6.0 Bedside Urine Protein - Negative Bedside Urine Urobilinogen - Negative Bedside Urine Nitrite - Negative Bedside Urine Leukocytes +/- 15 Esterase Discharge Plan Departure Patient Disposition: Home Clinical Impression: Minor closed head injury Contusion of rib Qualifiers: Encounter type: initial encounter Laterality: unspecified laterality Qualified Code(s): S20.219A - Contusion of unspecified front wall of thorax, initial encounter Headache Qualifiers: Headache type: unspecified Headache chronicity pattern: unspecified pattern Intractability: not intractable Qualified Code(s): R51 - Headache Discharge Date/Time: 07/12/18 21:40 Interventions: ED Discharge Assessment Last Done: 07/12/18 21:40 Instructions: DI for Rib Contusion, DI for Closed Head Injury Activity Restrictions/Additional Instructions: Laboratory results today were unremarkable. Carbon monoxide testing was negative. There is a confirmatory study sent to lab over this will take a few days for it to return follow up with her primary care provider for results. CT of the head was obtained was negative for any acute findings. CT of the abdomen and pelvis was obtained was negative for any acute findings. Signs and symptoms presents as contusion to the right ribcage area. This may take some time for to heal in for pain to improve. Headache the most likely secondary to fall with minor head injury. This also may take some time for healing use [id number] Tylenol or Motrin as needed for discomfort. Plenty of fluids and rest. Follow up with her primary care provider. Head injury instructions are provided with warning signs return to the emergency room. For any worsening symptoms return to the emergency room. Prescriptions: No Action alprazolam 0.25 mg tablet 0.25 mg PO BID RF: 0 propranolol 10 mg tablet 10 mg PO BID Qty: 60 RF: 3 multivitamin Tablet 1 tab PO DAILY RF: 0 ascorbic acid (vitamin C) [Vitamin C] 1,000 mg Tablet 1 g PO BID RF: 0 cholecalciferol (vitamin D3) [Vitamin D3] 5,000 unit Tablet 5,000 unit PO DAILY RF: 0 omega 9-tkh-wbl-fish oil [Fish Oil] 1,000 mg (120 mg-180 mg) Capsule 1,000 mg PO BID RF: 0 resveratrol 1 cap PO QPM RF: 0 Referrals: Jayson Marr MD [Primary Care Provider] - <Pilar Szymanski DO - Last Filed: 07/13/18 02:33> Cosign ED Attending Cosignature Attestation: I was immediately available in the department for consultation. Documentation has been reviewed. I agree with asses sment and plan. but when I discussed this case throughout. Multiple complaints. carbon monoxide level within normal limits for nonsmoker. Unlikely this is causing her headache.
--- NOTE | 2018-07-12 19:23 | DI.CT.S_ITS ---
PROCEDURE: CT ABDOMEN PELVIS W CON INDICATIONS: Ground level fall with pain to right chest and upper abdomen TECHNIQUE: After the administration of intravenous contrast, 5 mm thick sections acquired from the diaphragm to the symphysis. 5 mm coronal and sagittal reformats were acquired. For radiation dose reduction, the following was used: automated exposure control, adjustment of mA and/or kV according to patient size. COMPARISON: None. FINDINGS: Image quality: Excellent. ABDOMEN: Lung bases: Lung bases are clear. Heart size is normal. Solid organs: Liver is normal in size and enhancement. Gallbladder appears normal. Biliary system is non dilated. Pancreas enhances normally. Spleen is normal in size and enhancement. No adrenal nodules. Kidneys demonstrate normal size and enhancement, without hydronephrosis. Peritoneum and bowel: Bowel loops demonstrate normal wall thickness and caliber. No free fluid or air. Nodes and vessels: No retroperitoneal or mesenteric adenopathy by size criteria. Aorta and inferior vena cava are normal in size. Miscellaneous: No ventral hernias. PELVIS: Genitourinary: Bladder wall thickness is normal. Miscellaneous: No inguinal hernias or adenopathy. Bones: No suspicious bony lesions. No vertebral body compression fractures. IMPRESSION: No source of current pain after fall is not identified. Dictated by: Flo Kitchen M.D. on 07/12/2018 at 21:12 Approved by: Flo Kitchen M.D. on 07/12/2018 at 21:15
--- NOTE | 2018-07-12 19:23 | DI.CT.S_ITS ---
PROCEDURE: CT HEAD/BRAIN WO CON INDICATIONS: A ground level fall with headache TECHNIQUE: Noncontrast 4.5 mm thick angled axial sections acquired from the foramen magnum to the vertex, with coronal and sagittal reformats. For radiation dose reduction, the following was used: automated exposure control, adjustment of mA and/or kV according to patient size. COMPARISON: None. FINDINGS: Image quality: Excellent. CSF spaces: Basal cisterns are patent. No extra-axial fluid collections. The ventricles are symmetric in size and shape. Brain: No intracranial bleeds or masses. There is cerebral volume loss for age, with resultant ventricular and sulcal prominence. There are periventricular and deep white matter chronic small vessel ischemic changes. There is intracranial internal carotid artery atherosclerosis. Skull and face: Calvarium and visualized facial bones appear intact, without suspicious lesions. Sinuses: Visualized sinuses and mastoids are clear. 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 Dictated by: Flo Kitchen M.D. on 07/12/2018 at 21:11 Approved by: Flo Kitchen M.D. on 07/12/2018 at 21:11
[2018-07-12 19:50] VITALS: BP 170/76; PULSE 91; RESP 18; O2SAT 96
[2018-07-12 20:02] LABS: Bacteria Urine None Seen; RBC Urine None Seen (0-5/HPF)
[2018-07-12 20:03] LABS: Add Manual Diff / Slide Review NO; Basophils Absolute Auto 100 /uL (0-100); Eosinophils Absolute Auto 100 /uL (0-450); Eosinophils Percent Auto 1.5 % (2-4); Hematocrit 42.6 % (36-46); Hemoglobin 14.7 g/dL (12.0-16.0); Lymphocytes Absolute Auto 2300 /uL (1100-4500); Lymphocytes Percent Auto 31.4 % (25-40); Mean Corpuscular HGB Conc 34.4 % (30-36); Mean Corpuscular Hemoglobin 31.5 PG (26-34); Mean Corpuscular Volume 91.3 fL (80-100); Monocytes Absolute Auto 600 /uL (0-900); Monocytes Percent Auto 8.9 % (3-14); Neutrophils Absolute Auto 4100 /uL (1500-7000); Neutrophils Percent Auto 57.2 % (50-75); Platelet Count 291 X10^3/uL (150-400); Red Blood Cell Count 4.67 X10^6/uL (4.0-5.2); Red Cell Distribution Width 12.8 % (11.6-14.8); White Blood Cell Count 7.2 X10^3/uL (4.5-11.0)
[2018-07-12 20:16] LABS: Culture Indicated Urine Specimen Cultured; WBC Urine 5-10/HPF (0-5/HPF)
[2018-07-12 20:18] LABS: Alanine Aminotransferase 45 IU/L (9-52); Albumin 4.8 g/dL (3.5-5.0); Albumin Globulin Ratio 1.4 (1.0-2.8); Alkaline Phosphatase 74 U/L (38-126); Aspartate Aminotransferase 33 IU/L (14-36); BUN Creatinine Ratio 23.3 (6-22); Bilirubin Total 0.5 mg/dL (0.2-1.3); Blood Urea Nitrogen 21 mg/dL (7-17); Carbon Dioxide 27 mmol/L (22-32); Chloride 103 mmol/L (98-107); Estimated Glomerular Filt Rate > 60.0 mL/min (>60); Globulin 3.5 g/dL (1.7-4.1); Glucose 97 mg/dL (80-110); HEMOLYSIS < 15 (0-50); Potassium 3.7 mmol/L (3.4-5.1); Sodium 142 mmol/L (137-145); Total Protein 8.3 g/dL (6.3-8.2)
[2018-07-12] MEDS: OXYMETAZOLINE NASAL SPRAY 15 ML 2 SPRAYS NASAL (20:48)
[2018-07-12 21:40] VITALS: BP 171/72; PULSE 90; RESP 16; O2SAT 97
== END 2018-07-12 21:40 | disposition home or self-care (01) ==
PROVIDERS: Emergency Provider Nurse Practitioner Family; PCP Student in an Organized Health Care Education/Training Program
DX: S09.90XA Unspecified injury of head, initial encounter (principal); S20.219A Contusion of unspecified front wall of thorax, initial encounter; W19.XXXA Unspecified fall, initial encounter
CPT/HCPCS: 36591; 70450; 74177; 80053; 81003; 81015; 82375; 85025; 87086; 99283; 99285; Q9967

== ENCOUNTER 2018-08-02 04:14 | Emergency (ER) | payer MEDICARE, OTHER, SELFPAY ==
[2018-08-02 04:23] VITALS: BP 189/80; PULSE 104; RESP 16; TEMP 36.9; O2SAT 95; BMI 26.0
--- NOTE | 2018-08-02 04:43 | ED.ARRPALP ---
HPI - Arrhythmia/Palpitations General Chief Complaint: Arrhythmia/Palpitations Stated Complaint: Anxiety/ Elevated heart rate Time Seen by Provider: 08/02/18 04:20 Source: patient and EMS Mode of arrival: EMS Limitations: no limitations History of Present Illness HPI narrative: 78F nonsmoker with history of anxiety presents by EMS for evaluation palpitations, racing heart and anxiety that started this evening. She states she had palpitations wake her from sleeping and heart rate was as high as the 120s. On arrival EMS found her heart rate to be just over 100. She took no medications prior to EMS arrival and was given nothing in route. She has had evaluations for chest pain in the past but denies any significant racing heart like this evening. She denies chest pain is not dizzy or weak or lightheaded. She denies any recent dietary change. She just started Celexa 3 days ago but denies any other new medications. She states that she had a mechanical fall a few weeks ago and had been sleeping in her recliner due to rib pain but is back in her bed for the past few days. She denies any significant caffeine, nicotine or alcohol intake. MD complaint: rapid heart beat, heart racing and palpitations Onset (ago): hour(s) Duration: now resolved Severity: moderate Context: occurred during rest Associated symptoms: denies other symptoms Related Data Home Medications Medication Instructions Recorded Confirmed ascorbic acid (vitamin C) [Vitamin 1 g PO BID 03/09/18 03/15/18 C] cholecalciferol (vitamin D3) 5,000 unit PO DAILY 03/09/18 03/15/18 [Vitamin D3] multivitamin 1 tab PO DAILY 03/09/18 03/15/18 omega 3-eeb-gyk-fish oil [Fish Oil] 1,000 mg PO BID 03/09/18 03/15/18 resveratrol 1 cap PO QPM 03/09/18 03/15/18 alprazolam 0.25 mg tablet 0.25 mg PO BID 03/15/18 03/15/18 Previous Rx's Medication Instructions Recorded propranolol 10 mg tablet 10 mg PO BID #60 tab 03/15/18 Allergies Allergy/AdvReac Type Severity Reaction Status Date / Time Sulfa (Sulfonamide Allergy Unknown Verified 07/12/18 16:08 Antibiotics) [SULFA (SULFONAMIDE ANTIBIOTICS)] adhesive tape Allergy Verified 07/12/18 16:08 Review of Systems Constitutional Denies chills, Denies fever(s), Denies lethargy and Denies weakness Eyes Denies change in vision, Denies eye discharge, Denies irritation and Denies loss of vision ENT Ears, Nose, Mouth, and Throat: Denies change in voice, Denies neck pain and Denies sore throat Cardiovascular Denies chest pain, Reports rapid heart rate, Denies irregular heart rhythm, Denies lightheadedness, Reports palpitations, Denies dyspnea, Denies dyspnea on exertion and Denies orthopnea Respiratory Denies cough, Denies dyspnea, Denies dyspnea on exertion and Denies wheezing Gastrointestinal Gastrointestinal: Denies abdominal pain, Denies change in bowel habits, Denies diarrhea, Denies nausea and Denies vomiting Genitourinary Denies hematuria, Denies flank pain, Denies urinary incontinence and Denies urinary urgency Musculoskeletal Denies neck pain Integumentary/Breasts Denies pruritus, Denies erythema, Denies rash and Denies wounds Neurologic Denies confusion, Denies loss of vision and Denies weakness Psychiatric Reports anxiety, Denies confusion, Denies depression, Denies homicidal ideation and Denies suicidal ideation Endocrine Reports palpitations Hematologic/Lymphatic Denies easy bruising Allergic/Immunologic Denies wheezing PFSH Medical History Anxiety (Chronic) Mild acid reflux (Chronic) Surgical History H/O partial thyroidectomy (Resolved) History of carpal tunnel repair Status post hysterectomy Family History Father Diabetes mellitus Mother Ovarian cancer Social History Smoking Status: Former smoker Family History Father Diabetes mellitus Mother Ovarian cancer Social History Smoking Status: Former smoker Exam Narrative Exam Narrative: GENERAL: Pleasant 78-year-old female appears younger than stated age, she is in no obvious or significant distress though perhaps a bit anxious HEAD: Atraumatic. Normocephalic. No temporal or scalp tenderness. EYES: Pupils equal round and reactive. Extraocular motions intact. No scleral icterus. No injection or drainage. ENT: Nose without bleeding, purulent drainage or septal hematoma. Throat without erythema, tonsillar hypertrophy or exudate. Uvula midline. Airway patent. NECK: Trachea midline. No JVD or lymphadenopathy. Supple, nontender, no meningeal signs. CARDIOVASCULAR: Regular rate and rhythm without murmurs, gallops, or rubs. RESPIRATORY: Clear to auscultation. Breath sounds equal bilaterally. No wheezes, rales, or rhonchi. GASTROINTESTINAL: Abdomen soft, non-tender, nondistended. No hepato-splenomegaly, or palpable masses. No guarding. EXTREMITIES: No clubbing, cyanosis, or edema. No joint tenderness, effusion, or edema noted. BACK: Nontender without deformity or crepitance. No flank tenderness. NEURO: AOx3. SKIN: No rash or erythema. Initial Vital Signs Initial Vital Signs: Vital Signs Temperature 98.4 F 08/02/18 04:23 Pulse Rate 104 H 08/02/18 04:23 Respiratory Rate 16 08/02/18 04:23 Blood Pressure 189/80 H 08/02/18 04:23 Pulse Oximetry 95 08/02/18 04:23 Course Orders Ordered: ED Orders 08/02/18 04:20 Basic Metabolic Panel Stat Complete Blood Count AUTO DIFF Stat Magnesium Stat Thyroid Stimulating Hormone Stat Troponin & CK Cardiac Panel Stat 08/02/18 04:40 EKG-12 Lead Stat Sodium Chloride (Normal Saline 0.9%) 1,000 mls @ 150 mls/hr IV CONT ROCKY Last Admin: 08/02/18 04:52 Dose: 150 mls/hr Vital Signs - 8 hr 08/02/18 04:23 Temperature 98.4 F Pulse Rate 104 H Respiratory Rate 16 Blood Pressure 189/80 H Pulse Oximetry 95 MDM - Arrhythmia/Palpitations Differential Diagnosis Differential diagnosis: Likely palpitations, anxiety, sinus tachycardia, artial fibrillation, artial flutter, ventricular premature beats, supraventricular tachycardia and ventricular tachycardia Medical Records Attestation: I reviewed the patient's medical records. Lab Data Attestation: I reviewed the patient's lab results. Result diagrams: 08/02/18 04:20 08/02/18 04:20 Lab Results 08/02/18 08/02/18 08/02/18 Range/Units 04:20 04:20 04:20 WBC 6.9 (4.5-11.0) X10^3/uL RBC 4.40 (4.0-5.2) X10^6/uL Hgb 13.5 (12.0-16.0) g/dL Hct 40.3 (36-46) % MCV 91.6 (80-100) fL MCH 30.7 (26-34) PG MCHC 33.5 (30-36) % RDW 13.2 (11.6-14.8) % Plt Count 277 (150-400) X10^3/uL Neut % (Auto) 42.1 L (50-75) % Lymph % (Auto) 42.5 H (25-40) % [place] % (Auto) 11.2 (3-14) % Eos % (Auto) 3.3 (2-4) % Baso % (Auto) 0.9 (0-2) % Neut # (Auto) 2900 (6017-9785) /uL Lymph # (Auto) 2900 (9136-0473) /uL [place] # (Auto) 800 (0-900) /uL Eos # (Auto) 200 (0-450) /uL Baso # (Auto) 100 (0-100) /uL Sodium 138 (137-145) mmol/L Potassium 3.8 (3.4-5.1) mmol/L Chloride 104 (98-107) mmol/L Carbon Dioxide 26 (22-32) mmol/L BUN 25 H (7-17) mg/dL Creatinine 0.70 (0.52-1.04) mg/dL Estimated GFR > 60.0 (>60) mL/min BUN/Creatinine Ratio 35.7 H (6-22) Glucose 106 (80-110) mg/dL Calcium 9.5 (8.4-10.2) mg/dL Magnesium 2.1 (1.6-2.3) mg/dL Total Creatine Kinase 29 L (30-135) U/L CK-MB (CK-2) TNP CK-MB (CK-2) Rel Index TNP Troponin I < 0.012 (0.01-0.034) ng/mL TSH 2.30 (0.47-4.68) uIU/mL ECG Data Attestation: I personally reviewed and interpreted this ECG as follows: Prior ECG tracings: available for review Interpretation: EKG is normal sinus rhythm rate [81 ] and free of any signs of ischemia, occasional PVCs. No ST segmental elevation or depression. No T wave inversions MDM Narrative Medical decision making narrative: Multiple etiologies for patient's symptoms considered including: [PVCs, rapid AFib, other tachyarrhythmia, electrolyte abnormality, anxiety versus other] Patient's symptoms improved or duration of stay with above-stated therapies. Findings and discharge diagnosis discussed with patient/family followed by verbalization of understanding Return precautions discussed with patient/family whom verbalize understanding. Discharge Plan Departure Patient Disposition: Home Clinical Impression: Palpitations Instructions: DI for Palpitations Activity Restrictions/Additional Instructions: *You have been diagnosed with [palpitations] *What to do: *Continue to take medications as directed *Follow up with your primary care provider this afternoon as planned *Return to ER if you should have any new, worsening or concerning symptoms Prescriptions: No Action alprazolam 0.25 mg tablet 0.25 mg PO BID RF: 0 propranolol 10 mg tablet 10 mg PO BID Qty: 60 RF: 3 multivitamin Tablet 1 tab PO DAILY RF: 0 ascorbic acid (vitamin C) [Vitamin C] 1,000 mg Tablet 1 g PO BID RF: 0 cholecalciferol (vitamin D3) [Vitamin D3] 5,000 unit Tablet 5,000 unit PO DAILY RF: 0 omega 0-cpq-hbl-fish oil [Fish Oil] 1,000 mg (120 mg-180 mg) Capsule 1,000 mg PO BID RF: 0 resveratrol 1 cap PO QPM RF: 0 Referrals: Jayson Marr MD [Primary Care Provider] -
--- NOTE | 2018-08-02 04:49 | ED_ITS ---
HPI - Arrhythmia/Palpitations General Chief Complaint: Arrhythmia/Palpitations Stated Complaint: Anxiety/ Elevated heart rate Time Seen by Provider: 08/02/18 04:20 Source: patient and EMS Mode of arrival: EMS Limitations: no limitations History of Present Illness HPI narrative: 78F nonsmoker with history of anxiety presents by EMS for evaluation palpitations, racing heart and anxiety that started this evening. Sh e states she had palpitations wake her from sleeping and heart rate was as high as the 120s. On arrival EMS found her heart rate to be just over 100. She took no medications prior to EMS arrival and was given nothing in route. She has had evaluations for chest pain in the past but denies any significant racing heart like this evening. She denies chest pain is not dizzy or weak or lightheaded. She denies any recent dietary change. She just started Celexa 3 days ago but denies any other new medications. She states that she had a mechanical fall a few weeks ago and had been sleeping in her recliner due to rib pain but is back in her bed for the past few days. She denies any significant caffeine, nicotine or alcohol intake. MD complaint: rapid heart beat, heart racing and palpitations Onset (ago): hour(s) Duration: now resolved Severity: moderate Context: occurred during rest Associated symptoms: denies other symptoms Related Data Home Medications Medication Instructions Recorded Confirmed ascorbic acid (vitamin C) [Vitamin 1 g PO BID 03/09/18 03/15/18 C] cholecalciferol (vitamin D3) 5,000 unit PO DAILY 03/09/18 03/15/18 [Vitamin D3] multivitamin 1 tab PO DAILY 03/09/18 03/15/18 omega 7-xdf-zlp-fish oil [Fish Oil] 1,000 mg PO BID 03/09/18 03/15/18 resveratrol 1 cap PO QPM 03/09/18 03/15/18 alprazolam 0.25 mg tablet 0.25 mg PO BID 03/15/18 03/15/18 Previous Rx's Medication Instructions Recorded propranolol 10 mg tablet 10 mg PO BID #60 tab 03/15/18 Allergies Allergy/AdvReac Type Severity Reaction Status Date / Time Sulfa (Sulfonamide Allergy Unknown Verified 07/12/18 16:08 Antibiotics) [SULFA (SULFONAMIDE ANTIBIOTICS)] adhesive tape Allergy Verified 07/12/18 16:08 Review of Systems Constitutional Denies chills, Denies fever(s), Denies lethargy and Denies weakness Eyes Denies change in vision, Denies eye discharge, Denies irritation and Denies loss of vision ENT Ears, Nose, Mouth, and Throat: Denies change in voice, Denies neck pain and Denies sore throat Cardiovascular Denies chest pain, Reports rapid heart rate, Denies irregular heart rhythm, Denies lightheadedness, Reports palpitations, Denies dyspnea, Denies dyspnea on exertion and Denies orthopnea Respiratory Denies cough, Denies dyspnea, Denies dyspnea on exertion and Denies wheezing Gastrointestinal Gastrointestinal: Denies abdominal pain, Denies change in bowel habits, Denies diarrhea, Denies nausea and Denies vomiting Genitourinary Denies hematuria, Denies flank pain, Denies urinary incontinence and Denies urinary urgency Musculoskeletal Denies neck pain Integumentary/Breasts Denies pruritus, Denies erythema, Denies rash and Denies wounds Neurologic Denies confusion, Denies loss of vision and Denies weakness Psychiatric Reports anxiety, Denies confusion, Denies depression, Denies homicidal ideation and Denies suicidal ideation Endocrine Reports palpitations Hematologic/Lymphatic Denies easy bruising Allergic/Immunologic Denies wheezing PFSH Medical History Anxiety (Chronic) Mild acid reflux (Chronic) Surgical History H/O partial thyroidectomy (Resolved) History of carpal tunnel repair Status post hysterectomy Family History Father Diabetes mellitus Mother Ovarian cancer Social History Smoking Status: Former smoker Family History Father Diabetes mellitus Mother Ovarian cancer Social History Smoking Status: Former smoker Exam Narrative Exam Narrative: GENERAL: Pleasant 78-year-old female appears younger than stated age, she is in no obvious or significant distress though perhaps a bit anxious HEAD: Atraumatic. Normocephalic. No temporal or scalp tenderness. EYES: Pupils equal round and reactive. Extraocular motions intact. No scleral icterus. No injection or drainage. ENT: Nose without bleeding, purulent drainage or septal hematoma. Throat without erythema, tonsillar hypertrophy or exudate. Uvula midline. Airway patent. NECK: Trachea midline. No JVD or lymphadenopathy. Supple, nontender, no meningeal signs. CARDIOVASCULAR: Regular rate and rhythm without murmurs, gallops, or rubs. RESPIRATORY: Clear to auscultation. Breath sounds equal bilaterally. No wheezes, rales, or rhonchi. GASTROINTESTINAL: Abdomen soft, non-tender, nondistended. No hepato- splenomegaly, or palpable masses. No guarding. EXTREMITIES: No clubbing, cyanosis, or edema. No joint tenderness, effusion, or edema noted. BACK: Nontender without deformity or crepitance. No flank tenderness. NEURO: AOx3. SKIN: No rash or erythema. Initial Vital Signs Initial Vital Signs: Vital Signs Temperature 98.4 F 08/02/18 04:23 Pulse Rate 104 H 08/02/18 04:23 Respiratory Rate 16 08/02/18 04:23 Blood Pressure 189/80 H 08/02/18 04:23 Pulse Oximetry 95 08/02/18 04:23 Course Orders Ordered: ED Orders 08/02/18 04:20 Basic Metabolic Panel Stat Complete Blood Count AUTO DIFF Stat Magnesium Stat Thyroid Stimulating Hormone Stat Troponin & CK Cardiac Panel Stat 08/02/18 04:40 EKG-12 Lead Stat Sodium Chloride (Normal Saline 0.9%) 1,000 mls @ 150 mls/hr IV CONT ROCKY Last Admin: 08/02/18 04:52 Dose: 150 mls/hr Vital Signs - 8 hr 08/02/18 04:23 Temperature 98.4 F Pulse Rate 104 H Respiratory Rate 16 Blood Pressure 189/80 H Pulse Oximetry 95 MDM - Arrhythmia/Palpitations Differential Diagnosis Differential diagnosis: Likely palpitations, anxiety, sinus tachycardia, artial fibrillation, artial flutter, ventricular premature beats, supraventricular tachycardia and ventricular tachycardia Medical Records Attestation: I reviewed the patient's medical records. Lab Data Attestation: I reviewed the patient's lab results. Result diagrams: 08/02/18 04:20 08/02/18 04:20 Lab Results 03/05/19 03/05/19 03/05/19 Range/Units 04:20 04:20 04:20 WBC 6.9 (4.5-11.0) X10^3/uL RBC 4.40 (4.0-5.2) X10^6/uL Hgb 13.5 (12.0-16.0) g/dL Hct 40.3 (36-46) % MCV 91.6 (80-100) fL MCH 30.7 (26-34) PG MCHC 33.5 (30-36) % RDW 13.2 (11.6-14.8) % Plt Count 277 (150-400) X10^3/uL Neut % (Auto) 42.1 L (50-75) % Lymph % (Auto) 42.5 H (25-40) % [place] % (Auto) 11.2 (3-14) % Eos % (Auto) 3.3 (2-4) % Baso % (Auto) 0.9 (0-2) % Neut # (Auto) 2900 (0415-9943) /uL Lymph # (Auto) 2900 (3811-6400) /uL [place] # (Auto) 800 (0-900) /uL Eos # (Auto) 200 (0-450) /uL Baso # (Auto) 100 (0-100) /uL Sodium 138 (137-145) mmol/L Potassium 3.8 (3.4-5.1) mmol/L Chloride 104 (98-107) mmol/L Carbon Dioxide 26 (22-32) mmol/L BUN 25 H (7-17) mg/dL Creatinine 0.70 (0.52-1.04) mg/dL Estimated GFR > 60.0 (>60) mL/min BUN/Creatinine Ratio 35.7 H (6-22) Glucose 106 (80-110) mg/dL Calcium 9.5 (8.4-10.2) mg/dL Magnesium 2.1 (1.6-2.3) mg/dL Total Creatine Kinase 29 L (30-135) U/L CK-MB (CK-2) TNP CK-MB (CK-2) Rel Index TNP Troponin I < 0.012 (0.01-0.034) ng/mL TSH 2.30 (0.47-4.68) uIU/mL ECG Data Attestation: I personally reviewed and interpreted this ECG as follows: Prior ECG tracings: available for review Interpretation: EKG is normal sinus rhythm rate [81 ] and free of any signs of ischemia, occasional PVCs. No ST segmental elevation or depression. No T wave inversions MDM Narrative Medical decision making narrative: Multiple etiologies for patient's symptoms considered including: [PVCs, rapid AFib, other tachyarrhythmia, electrolyte abnormality, anxiety versus other] Patient's symptoms improved or duration of stay with above-stated therapies. Findings and discharge diagnosis discussed with patient/family followed by verbalization of understanding Return precautions discussed with patient/family whom verbalize understanding. Discharge Plan Departure Patient Disposition: Home Clinical Impression: Palpitations Instructions: DI for Palpitations Activity Restrictions/Additional Instructions: *You have been diagnosed with [palpitations] *What to do: *Continue to take medications as directed *Follow up with your primary care provider this afternoon as planned *Return to ER if you should have any new, worsening or concerning symptoms Prescriptions: No Action alprazolam 0.25 mg tablet 0.25 mg PO BID RF: 0 propranolol 10 mg tablet 10 mg PO BID Qty: 60 RF: 3 multivitamin Tablet 1 tab PO DAILY RF: 0 ascorbic acid (vitamin C) [Vitamin C] 1,000 mg Tablet 1 g PO BID RF: 0 cholecalciferol (vitamin D3) [Vitamin D3] 5,000 unit Tablet 5,000 unit PO DAILY RF: 0 omega 8-clk-hbr-fish oil [Fish Oil] 1,000 mg (120 mg-180 mg) Capsule 1,000 mg PO BID RF: 0 resveratrol 1 cap PO QPM RF: 0 Referrals: Jayson Marr MD [Primary Care Provider] -
[2018-08-02 04:50] LABS: Add Manual Diff / Slide Review NO; Basophils Absolute Auto 100 /uL (0-100); Basophils Percent Auto 0.9 % (0-2); Eosinophils Absolute Auto 200 /uL (0-450); Eosinophils Percent Auto 3.3 % (2-4); Hematocrit 40.3 % (36-46); Hemoglobin 13.5 g/dL (12.0-16.0); Lymphocytes Absolute Auto 2900 /uL (1100-4500); Lymphocytes Percent Auto 42.5 % (25-40); Mean Corpuscular HGB Conc 33.5 % (30-36); Mean Corpuscular Hemoglobin 30.7 PG (26-34); Mean Corpuscular Volume 91.6 fL (80-100); Monocytes Absolute Auto 800 /uL (0-900); Monocytes Percent Auto 11.2 % (3-14); Neutrophils Absolute Auto 2900 /uL (1500-7000); Neutrophils Percent Auto 42.1 % (50-75); Platelet Count 277 X10^3/uL (150-400); Red Cell Distribution Width 13.2 % (11.6-14.8); White Blood Cell Count 6.9 X10^3/uL (4.5-11.0)
[2018-08-02] MEDS: SODIUM CHLORIDE 0.9% 1,000 ML 150 ML IV (04:52)
[2018-08-02 04:54] LABS: BUN Creatinine Ratio 35.7 (6-22); Blood Urea Nitrogen 25 mg/dL (7-17); Calcium 9.5 mg/dL (8.4-10.2); Carbon Dioxide 26 mmol/L (22-32); Chloride 104 mmol/L (98-107); Creatine Kinase 29 U/L (30-135); Estimated Glomerular Filt Rate > 60.0 mL/min (>60); Glucose 106 mg/dL (80-110); HEMOLYSIS < 15 (0-50); Magnesium 2.1 mg/dL (1.6-2.3); Potassium 3.8 mmol/L (3.4-5.1); Sodium 138 mmol/L (137-145)
[2018-08-02 05:06] LABS: Troponin I < 0.012 ng/mL (0.01-0.034)
[2018-08-02 05:41] VITALS: BP 184/65; PULSE 69; RESP 16; O2SAT 95
== END 2018-08-02 05:47 | disposition home or self-care (01) ==
PROVIDERS: Emergency Provider Emergency Medicine; PCP Student in an Organized Health Care Education/Training Program
DX: R00.2 Palpitations (principal)
CPT/HCPCS: 36591; 80048; 82550; 83735; 84443; 84484; 85025; 93005; 93041; 96360; 99283; 99284

== ENCOUNTER → 2018-08-15 08:17 | Outpatient (CLI) | payer MEDICARE, OTHER, SELFPAY ==
--- NOTE | 2018-08-15 | DI.NM.S_ITS ---
PROCEDURE: NM ROSALES PERF SPECT REST & STR Rest and exercise myocardial perfusion SPECT with gated imaging and ejection fraction RADIOPHARMACEUTICAL: 24.7 mCi Tc-99m sestamibi IV at rest and 23.9 mCi Tc-99m sestamibi IV at peak exercise. A two day-protocol was performed. INDICATIONS: FATIGUE TECHNIQUE: Radiopharmaceutical was injected at peak stress test, and also at rest. SPECT images were obtained. SPECT myocardial perfusion images were displayed in short axis, horizontal long axis, and vertical long axis views. Gated images were reviewed using [employer] software. COMPARISON: None. CARDIAC STRESS: A standard [employer] treadmill exercise tolerance test was performed by the patient under the supervision of an attending staff. The patient exercised for 7 minutes and 17 seconds reaching 8.8 METs; functional aerobic impairment (DIANE) is -50%. Hemodynamic data: There is normal heart rate response to exercise stress. Patient achieved 116% of maximum predicted heart rate at peak exercise. Hypertension at rest (BP 180/86mmHg) and hypertensive response to exercise (max BP 220/100mmg). Symptoms: Patient denied chest pain during exercise. EKG: Resting ECG showed sinus rhythm with left axis deviation. No diagnostic EKG changes of ischemia; occasional PACs and PVCs. FINDINGS: Raw data: There is good myocardial labeling by radiotracer. No significant motion artifacts. Otbi-jm-rnxha ratio is 0.4 (normal is less than 0.38 for sestamibi tracer, and less than 0.50 for thallium tracer). Left ventricle function: Gated images demonstrate normal left ventricle wall thickening. No segmental wall motion abnormality. No transient ischemic dilation; TID is 0.84 (normal less than 1.3). The left ventricle resting end-diastolic volume is 84 mL. Left ventricle stress ejection fraction is 75%; normal values are above 45%. Myocardial perfusion: There is normal distribution of activity in the left and right ventricular myocardium. No fixed or reversible perfusion defects. IMPRESSION: Low risk, normal treadmill nuclear stress test. Hypertension and hypertensive response to exercise. 1) Normal perfusion images, with no evidence of ischemia or infarction. 2) Normal left ventricular size, wall motion, and systolic function (post stress LVEF of 75%). 3) No ischemic ECG changes with exercise. 4) No angina during the study. 5) Very good exercise tolerance (8.8 METs, DIANE -50%). Target heart rate achieved. 6) Hypertension at rest (BP 180/86mmHg) and hypertensive response to exercise (max BP 220/100mmg). 7) No prior nuclear stress test available for comparison. Recommend further optimization of hypertension. Dictated by: Johanna Martinez MD on 08/17/2018 at 12:46 Approved by: Johanna Martinez MD on 08/17/2018 at 12:52
--- NOTE | 2018-08-15 09:27 | P.PCN_ITS ---
Cardiac Stress Test Report Referral & Results Date Patient Seen: 08/15/18 Requesting provider: Mariah Reyna Indication: Fatigue Rest ECG: Unremarkable Procedure Note: Today following both written and verbal informed consent the patient was exercised according to a standard [employer] protocol patient went for a total of 7 achieving a maximum heart rate of 163 maximum systolic blood pressure of 220. This is approximately 8.8 METS. Exercise was terminated at this point because of inability the patient to keep and fatigue. Patient was also given Cardiolite through a previously started Hep-Lock IV by the chemistry laboratory technician approximately 1 minute prior to the cessation of exercise. There are no ST-T segment changes identified Patient was hypertensive. To start and remained so throughout but had a normal blood pressure response to exercise Occasional PVC and PAC identified Functional aerobic impairment was well off the scale because of patient's age a nd capacity. Estimate her exercise capacity to be equal that of an active 54-year-old female or an approximate-50% impairment on the active scale Impression: No evidence of ischemia, see perfusion imaging as well Amazing exercise capacity Please note: Actual ECG tracings can be found in the PACS system.
== END ==
PROVIDERS: PCP Internal Medicine; Visit Provider Internal Medicine
DX: R53.83 Other fatigue (principal); I10 Essential (primary) hypertension; R94.39 Abnormal result of other cardiovascular function study; I49.9 Cardiac arrhythmia, unspecified
CPT/HCPCS: 78452; 93016; 93017; 93018; A9502

== ENCOUNTER → 2018-09-30 15:18 | Outpatient (CLI) | payer MEDICARE, OTHER, SELFPAY ==
--- NOTE | 2018-09-30 | DI.MRI.S_ITS ---
PROCEDURE: MR KNEE LT WO CON INDICATIONS: unilateral primary osteoarthritis of left knee. Medial left knee pain TECHNIQUE: Noncontrast sagittal PD fast spin echo and T2 fast spin echo with fat saturation, sagittal 3-D FLASH with fat saturation; coronal T1 spin echo and PD fast spin echo with fat saturation, and axial PD fast spin echo with fat saturation through the knee. COMPARISON: [facility], CR, XR KNEE ARTHRITIC SERIES LT, 09/21/2018, 9:14. FINDINGS: Image quality: Excellent. Menisci: The medial extrusion of the medial meniscus. The medial meniscus appears diminutive, compatible with prior surgery. No definite superimposed recent tearing. Lateral meniscus is intact. Cruciate ligaments: The anterior and posterior cruciate ligaments appear intact. Medial structures: The medial collateral ligament appears intact. Visualized portions of the pes anserinus tendons appear normal. No abnormal bursal fluid. Lateral structures: The lateral collateral ligament, long and short heads of the biceps femoris tendon appear intact. The popliteus tendon appears normal. Iliotibial band appears normal. Anterior structures: The quadriceps and patellar tendons appear intact. Patellar alignment is normal. No femoral trochlear dysplasia or ventral trochlear prominence. No edema in the infrapatellar fat pad. Bones and cartilage: No bone marrow contusions or fractures there is moderate ill-defined degenerative marrow edema within the weightbearing aspects of the medial and lateral tibial plateau. A few small intraosseous ganglia within the medial tibial plateau are present.. Mild periarticular osteophyte formation at the medial and patellofemoral compartment margins. Severe diffuse surgical cartilage loss overlies the weightbearing aspects of the medial femoral condyle and medial tibial plateau. Mild diffuse articular cartilage loss overlies the weightbearing aspects of the lateral femoral condyle and lateral tibial plateau. Severe articular cartilage loss overlies the medial patellar apex superiorly. Focal region of moderate to cartilage loss overlies the lateral patellar apex. Small intraosseous ganglia within the medial and lateral patellar apex are present. Joint space: There is a small knee joint effusion and a small Marie's cyst. Normal appearing synovial plicae are incidentally noted. IMPRESSION: 1. Tricompartmental loss arthritis with associated articular cartilage loss. 2. Postsurgical sequelae involving the medial meniscus. 3. Small knee joint effusion. Small Marie's cyst. Dictated by: Joao Anglin M.D. on 09/30/2018 at 16:17 Approved by: Joao Anglin M.D. on 09/30/2018 at 16:21
== END ==
PROVIDERS: PCP Internal Medicine; Visit Provider Orthopaedic Surgery
DX: M17.12 Unilateral primary osteoarthritis, left knee (principal); M25.562 Pain in left knee; M25.462 Effusion, left knee; M71.22 Synovial cyst of popliteal space [Baker], left knee
CPT/HCPCS: 73721

== ENCOUNTER → 2018-10-04 10:28 | Outpatient (CLI) | payer MEDICARE, OTHER, SELFPAY ==
[2018-10-04 10:35] LABS: Bacteria Urine None Seen; RBC Urine None Seen (0-5/HPF); WBC Urine None Seen (0-5/HPF)
[2018-10-04 10:59] LABS: Add Manual Diff / Slide Review NO; Basophils Absolute Auto 100 /uL (0-100); Basophils Percent Auto 0.9 % (0-2); Eosinophils Absolute Auto 200 /uL (0-450); Eosinophils Percent Auto 3.5 % (2-4); Hematocrit 37.1 % (36-46); Hemoglobin 12.4 g/dL (12.0-16.0); Lymphocytes Absolute Auto 2100 /uL (1100-4500); Mean Corpuscular HGB Conc 33.3 % (30-36); Mean Corpuscular Hemoglobin 30.9 PG (26-34); Mean Corpuscular Volume 92.6 fL (80-100); Monocytes Absolute Auto 600 /uL (0-900); Monocytes Percent Auto 11.2 % (3-14); Neutrophils Absolute Auto 2700 /uL (1500-7000); Neutrophils Percent Auto 47.4 % (50-75); Platelet Count 275 X10^3/uL (150-400); Red Blood Cell Count 4.01 X10^6/uL (4.0-5.2); Red Cell Distribution Width 12.9 % (11.6-14.8); White Blood Cell Count 5.7 X10^3/uL (4.5-11.0)
[2018-10-04 11:24] LABS: BUN Creatinine Ratio 34.3 (6-22); Blood Urea Nitrogen 24 mg/dL (7-17); Carbon Dioxide 30 mmol/L (22-32); Chloride 101 mmol/L (98-107); Estimated Glomerular Filt Rate > 60.0 mL/min (>60); Glucose 93 mg/dL (80-110); HEMOLYSIS < 15 (0-50); Potassium 4.3 mmol/L (3.4-5.1); Sodium 138 mmol/L (137-145)
[2018-10-04 11:42] LABS: Appearance Urine UA CLEAR; Bilirubin Urine UA NEGATIVE (NEGATIVE); Color Urine UA YELLOW; Glucose Urine UA NEGATIVE (Negative); Ketones Urine UA NEGATIVE (NEGATIVE); Leukocyte Esterase Urine UA NEGATIVE (NEGATIVE); Nitrite Urine UA NEGATIVE (Negative); Occult Blood Urine UA NEGATIVE (Negative); Protein Urine UA NEGATIVE (Negative); Urobilinogen Urine UA 0.2 E.U./dL (0.2); pH Urine UA 7.5 (4.5-8.0)
[2018-10-04 12:16] LABS: Culture Indicated Urine Cult Not Indicated; Squamous Epithelial Cell Urine 0-1 /HPF (0-5/HPF)
[2018-10-04 12:32] LABS: Hemoglobin A1C% w Est Avg Glu 5.3 % (4.0-6.0)
== END ==
PROVIDERS: PCP Internal Medicine; Visit Provider Orthopaedic Surgery
DX: Z01.812 Encounter for preprocedural laboratory examination (principal); N39.9 Disorder of urinary system, unspecified; R73.9 Hyperglycemia, unspecified; Z13.1 Encounter for screening for diabetes mellitus
CPT/HCPCS: 36415; 80048; 81001; 83036; 85025

== ENCOUNTER → 2018-12-28 16:29 | Outpatient (CLI) | payer MEDICARE, OTHER, SELFPAY ==
[2018-12-28 17:43] LABS: Add Manual Diff / Slide Review NO; Basophils Absolute Auto 100 /uL (0-100); Basophils Percent Auto 0.8 % (0-2); Eosinophils Absolute Auto 200 /uL (0-450); Eosinophils Percent Auto 2.7 % (2-4); Hematocrit 39.2 % (36-46); Lymphocytes Absolute Auto 2200 /uL (1100-4500); Lymphocytes Percent Auto 32.8 % (25-40); Mean Corpuscular HGB Conc 33.2 % (30-36); Mean Corpuscular Hemoglobin 30.2 PG (26-34); Mean Corpuscular Volume 90.9 fL (80-100); Monocytes Absolute Auto 500 /uL (0-900); Monocytes Percent Auto 7.8 % (3-14); Neutrophils Absolute Auto 3700 /uL (1500-7000); Neutrophils Percent Auto 55.9 % (50-75); Platelet Count 278 X10^3/uL (150-400); Red Blood Cell Count 4.31 X10^6/uL (4.0-5.2); Red Cell Distribution Width 13.7 % (11.6-14.8); White Blood Cell Count 6.6 X10^3/uL (4.5-11.0)
[2018-12-28 18:14] LABS: HEMOLYSIS < 15 (0-50)
[2018-12-28 18:18] LABS: Alanine Aminotransferase 27 IU/L (9-52); Albumin 4.3 g/dL (3.5-5.0); Albumin Globulin Ratio 1.5 (1.0-2.8); Alkaline Phosphatase 68 U/L (38-126); Aspartate Aminotransferase 26 IU/L (14-36); BUN Creatinine Ratio 33.3 (6-22); Bilirubin Total 0.5 mg/dL (0.2-1.3); Blood Urea Nitrogen 30 mg/dL (7-17); Calcium 10.3 mg/dL (8.4-10.2); Carbon Dioxide 27 mmol/L (22-32); Chloride 101 mmol/L (98-107); Estimated Glomerular Filt Rate > 60.0 mL/min (>60); Globulin 2.9 g/dL (1.7-4.1); Glucose 93 mg/dL (80-110); Magnesium 2.3 mg/dL (1.6-2.3); Potassium 4.5 mmol/L (3.4-5.1); Sodium 139 mmol/L (137-145); Total Protein 7.2 g/dL (6.3-8.2)
[2018-12-28 19:03] LABS: TSH w/ Reflex to FT4 2.28 uIU/mL (0.47-4.68)
[2018-12-28 19:33] LABS: Ferritin 46.7 ng/mL (11.1-264)
[2018-12-28 20:04] LABS: Folate > 20.0 ng/mL (2.76-20.0); Vitamin B12 671 pg/mL (239-931)
[2018-12-30 15:57] LABS: Parathyroid Hormone Int 37 pg/mL (14-64)
[2019-01-02 06:39] LABS: Ionized Calcium 5.3 mg/dL (4.8-5.6)
== END ==
PROVIDERS: PCP Internal Medicine; Visit Provider Internal Medicine
DX: E21.3 Hyperparathyroidism, unspecified (principal); R53.82 Chronic fatigue, unspecified; Z86.2 Personal history of diseases of the blood and blood-forming organs and certain disorders involving the immune mechanism
CPT/HCPCS: 36415; 80053; 82330; 82607; 82728; 82746; 83735; 83970; 84443; 85025

== ENCOUNTER 2019-02-27 12:02 | Emergency (ER) | payer MEDICARE, OTHER, SELFPAY ==
[2019-02-27 12:18] VITALS: BP 192/62; PULSE 82; RESP 20; TEMP 36.9; O2SAT 100; BMI 26.5
[2019-02-27 12:24] LABS: Add Manual Diff / Slide Review NO; Basophils Absolute Auto 100 /uL (0-100); Basophils Percent Auto 1.1 % (0-2); Eosinophils Absolute Auto 200 /uL (0-450); Eosinophils Percent Auto 2.7 % (2-4); Hematocrit 38.9 % (36-46); Hemoglobin 13.3 g/dL (12.0-16.0); Lymphocytes Absolute Auto 2800 /uL (1100-4500); Lymphocytes Percent Auto 34.7 % (25-40); Mean Corpuscular HGB Conc 34.2 % (30-36); Mean Corpuscular Hemoglobin 30.4 PG (26-34); Mean Corpuscular Volume 88.9 fL (80-100); Monocytes Absolute Auto 800 /uL (0-900); Monocytes Percent Auto 9.8 % (3-14); Neutrophils Absolute Auto 4100 /uL (1500-7000); Neutrophils Percent Auto 51.7 % (50-75); Platelet Count 234 X10^3/uL (150-400); Red Blood Cell Count 4.38 X10^6/uL (4.0-5.2); Red Cell Distribution Width 13.5 % (11.6-14.8)
[2019-02-27 12:29] LABS: BUN Creatinine Ratio 51.7 (6-22); Blood Urea Nitrogen 31 mg/dL (7-17); Calcium 10.2 mg/dL (8.4-10.2); Carbon Dioxide 25 mmol/L (22-32); Chloride 102 mmol/L (98-107); Estimated Glomerular Filt Rate > 60.0 mL/min (>60); Glucose 87 mg/dL (80-110); HEMOLYSIS 21 (0-50); Potassium 3.7 mmol/L (3.4-5.1); Sodium 139 mmol/L (137-145)
[2019-02-27 12:53] LABS: Creatine Kinase 40 U/L (30-135)
--- NOTE | 2019-02-27 12:55 | DI.RAD.S_ITS ---
PROCEDURE: XR CHEST 1V INDICATIONS: dizzy, fluttering TECHNIQUE: One view of the chest was acquired. COMPARISON: [facility], CR, XR CHEST 1V, 03/09/2018, 11:59. FINDINGS: Surgical changes and devices: None. Lungs and pleura: Lungs are clear. No pleural effusions or pneumothorax. Mediastinum: Mediastinal contours appear normal. Heart at the upper limits of normal in size. Bones and chest wall: No suspicious bony lesions. Overlying soft tissues appear unremarkable. IMPRESSION: No acute cardiopulmonary disease process. Dictated by: Siomara Daugherty MD, PhD on 02/27/2019 at 13:58 Approved by: Siomara Daugherty MD, PhD on 02/27/2019 at 13:58
[2019-02-27 13:05] LABS: Troponin I < 0.012 ng/mL (0.01-0.034)
[2019-02-27 13:15] LABS: Magnesium 2.2 mg/dL (1.6-2.3)
[2019-02-27 13:22] LABS: B Type Natriuretic Peptide 107 (<100)
[2019-02-27 15:00] VITALS: BP 144/61; PULSE 68; RESP 20; O2SAT 100
[2019-02-27 15:22] LABS: Creatine Kinase 35 U/L (30-135)
[2019-02-27 15:35] LABS: Troponin I < 0.012 ng/mL (0.01-0.034)
[2019-02-27 15:58] VITALS: BP 139/57; BP 144/61; BP 153/66; PULSE 65; PULSE 66
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
== END 2019-02-27 16:14 | disposition home or self-care (01) ==
PROVIDERS: Emergency Medicine; Emergency Provider Nurse Practitioner Family; PCP Internal Medicine
DX: R42 Dizziness and giddiness (principal)
CPT/HCPCS: 36415; 71045; 80048; 81003; 82550; 83735; 83880; 84484; 85025; 85610; 93005; 99283; 99285

== ENCOUNTER → 2019-06-27 12:07 | Outpatient (CLI) | payer MEDICARE, OTHER, SELFPAY ==
--- NOTE | 2019-06-27 | DI.RAD.S_ITS ---
PROCEDURE: XR HAND RT 2V INDICATIONS: osteoarthritis of hand UNSPECIFIED TECHNIQUE: 2 views of the hand(s) acquired. COMPARISON: None. FINDINGS: Bones: No fractures or dislocations. Carpal bones are normally aligned. No suspicious bony lesions. Severe diffuse osteopenia and screw fixation of the thumb interphalangeal joint. Hardware appears intact. No evidence of loosening. Diffuse MCP, interphalangeal triscaphe and first CMC joint degeneration. Marginal lucencies seen at the DIP joints of the fingers, as well as the PIP joint of the ring finger. There is possible developing gullwing appearance seen at the DIP joint suggestive of central erosions, and erosive osteoarthritis Soft tissues: No suspicious soft tissue calcifications. IMPRESSION: Severe diffuse right hand osteoarthritis. Screw fixation of the thumb interphalangeal joint. Expected postoperative alignment Polyarticular marginal and central lucencies possibly erosions as above. This is most notably seen at the PIP joint of the right ring finger. Possible developing gullwing appearance involving the DIP joints raise the possibility of erosive osteoarthritis Dictated by: Maikel Evangelista M.D. on 06/27/2019 at 15:46 Approved by: Maikel Evangelista M.D. on 06/27/2019 at 15:50
--- NOTE | 2019-06-27 | DI.RAD.S_ITS ---
PROCEDURE: XR HAND LT 2V INDICATIONS: osteoarthritis of hand UNSPECIFIED TECHNIQUE: 2 views of the hand(s) acquired. COMPARISON: None. FINDINGS: Bones: No fractures or dislocations. Carpal bones are normally aligned. No suspicious bony lesions. Diffuse osteoarthritis, most pronounced at the first CMC and triscaphe joints. There is also diffuse interphalangeal and MCP joint degeneration. Possible central erosions with gullwing appearance involving the DIP joints of the fingers. There also marginal lucencies most notably at the PIP joints of the index and middle finger as well as the fifth and second MCP joints. Soft tissues: No suspicious soft tissue calcifications. IMPRESSION: Severe left hand joint degeneration Polyarticular central and marginal lucencies suggesting erosions. Possible developing gullwing appearance at the DIP joints raise the possibility of early erosive osteoarthritis. Dictated by: Maikel Evangelista M.D. on 06/27/2019 at 15:50 Approved by: Maikel Evangelista M.D. on 06/27/2019 at 15:54
== END ==
PROVIDERS: PCP Internal Medicine; Visit Provider Internal Medicine
DX: M19.042 Primary osteoarthritis, left hand (principal); M19.041 Primary osteoarthritis, right hand; M18.0 Bilateral primary osteoarthritis of first carpometacarpal joints
CPT/HCPCS: 73120

== ENCOUNTER → 2019-08-07 07:40 | Outpatient (CLI) | payer MEDICARE, OTHER, SELFPAY ==
--- NOTE | 2019-08-07 | DI.MRI.S_ITS ---
PROCEDURE: MR HIP RT WO CON INDICATIONS: Myalgia, other site TECHNIQUE: Noncontrast coronal T1 spin echo and STIR through the bony pelvis. Coronal and axial T2 fast spin echo with fat saturation, sagittal T1 spin echo, and oblique axial T2 fast spin echo with fat saturation through the hip. COMPARISON: None. FINDINGS: Image quality: Excellent. Bones and joints: No fracture identified. Sacroiliac joints are unremarkable in signal intensity. There is lower lumbar spondylosis and facet arthropathy. No pathologic hip joint effusion. No evidence of osteonecrosis. Tendons and ligaments: Insertional hip abductor tendinopathy involving the gluteus medius and minimus Proximal iliotibial band intact. Iliopsoas tendon intact. Origin of the hamstring tendon demonstrates thickening and T2 hyperintensity, technically indeterminate although suggestive of chronic tendinopathy. The straight and reflected heads of the rectus femoris muscle origin appear intact Ligamentum teres appears intact where visualized. Labrum: There is ill-defined anterosuperior segment labral fraying, probably age appropriate. The alpha angle of the femur is within normal limits at less than 55 degrees. Soft tissues: Visualized muscles demonstrate normal bulk and internal signal. Quadratus femoris muscle normal. Proximal sciatic neurovascular bundle appears normal adjacent to the hamstring tendons. No free pelvic fluid. Bladder normal. Genitourinary structures and bowel loops appear normal where visualized. 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 Similar changes on the contralateral left side although to a lesser extent Age-indeterminate right hamstring origin tendinopathy Lower lumbar spondylosis and partially visualized lateral curvature. Ill-defined fraying of the anterosuperior labrum, probably age appropriate. Dictated by: Maikel Evangelista M.D. on 08/07/2019 at 10:30 Approved by: Maikel Evangelista M.D. on 08/07/2019 at 11:17
[2019-08-07 09:32] LABS: Alanine Aminotransferase 24 IU/L (<35); Albumin 4.2 g/dL (3.5-5.0); Albumin Globulin Ratio 1.3 (1.0-2.8); Alkaline Phosphatase 76 U/L (38-126); Aspartate Aminotransferase 32 IU/L (14-36); BUN Creatinine Ratio 56.7 (6-22); Bilirubin Total 0.4 mg/dL (0.2-1.3); Blood Urea Nitrogen 34 mg/dL (7-17); Carbon Dioxide 28 mmol/L (22-32); Chloride 107 mmol/L (98-107); Creatine Kinase 45 U/L (30-135); Estimated Glomerular Filt Rate > 60.0 mL/min (>60); Globulin 3.2 g/dL (1.7-4.1); Glucose 98 mg/dL (80-110); HEMOLYSIS < 15 (0-50); Magnesium 2.1 mg/dL (1.6-2.3); Potassium 3.9 mmol/L (3.4-5.1); Sodium 139 mmol/L (137-145); Total Protein 7.4 g/dL (6.3-8.2)
== END ==
PROVIDERS: PCP Internal Medicine; Referring Provider Internal Medicine; Visit Provider Internal Medicine
DX: M79.18 Myalgia, other site (principal); M47.816 Spondylosis without myelopathy or radiculopathy, lumbar region; M67.951 Unspecified disorder of synovium and tendon, right thigh; E21.3 Hyperparathyroidism, unspecified; I10 Essential (primary) hypertension
CPT/HCPCS: 36415; 73721; 80053; 82085; 82330; 82550; 83735; 83970

== ENCOUNTER → 2019-11-03 09:51 | Outpatient (CLI) | payer MEDICARE, OTHER, SELFPAY ==
[2019-11-03 10:48] LABS: Add Manual Diff / Slide Review NO; Basophils Absolute Auto 100 /uL (0-100); Basophils Percent Auto 1.1 % (0-2); Eosinophils Absolute Auto 100 /uL (0-450); Eosinophils Percent Auto 1.9 % (2-4); Lymphocytes Absolute Auto 1800 /uL (1100-4500); Lymphocytes Percent Auto 36.3 % (25-40); Mean Corpuscular HGB Conc 35.2 % (30-36); Mean Corpuscular Hemoglobin 32.1 PG (26-34); Mean Corpuscular Volume 91.4 fL (80-100); Monocytes Absolute Auto 500 /uL (0-900); Monocytes Percent Auto 10.8 % (3-14); Neutrophils Absolute Auto 2500 /uL (1500-7000); Neutrophils Percent Auto 49.9 % (50-75); Platelet Count 242 X10^3/uL (150-400); Red Blood Cell Count 4.05 X10^6/uL (4.0-5.2); Red Cell Distribution Width 12.9 % (11.6-14.8)
[2019-11-03 11:00] LABS: Erythrocyte Sedimentation Rate 17 MM/HR (0-20)
[2019-11-03 11:31] LABS: Alanine Aminotransferase 21 IU/L (<35); Albumin 4.1 g/dL (3.5-5.0); Albumin Globulin Ratio 1.3 (1.0-2.8); Alkaline Phosphatase 64 U/L (38-126); Aspartate Aminotransferase 30 IU/L (14-36); BUN Creatinine Ratio 28.6 (6-22); Bilirubin Total 0.7 mg/dL (0.2-1.3); Blood Urea Nitrogen 20 mg/dL (7-17); C-Reactive Protein Quant 1.4 mg/dL (<1.0); Calcium 10.5 mg/dL (8.4-10.2); Carbon Dioxide 27 mmol/L (22-32); Chloride 104 mmol/L (98-107); Estimated Glomerular Filt Rate > 60.0 mL/min (>60); Globulin 3.1 g/dL (1.7-4.1); Glucose 101 mg/dL (80-110); HEMOLYSIS < 15 (0-50); Potassium 4.3 mmol/L (3.4-5.1); Sodium 136 mmol/L (137-145); Total Protein 7.2 g/dL (6.3-8.2)
[2019-11-03 11:36] LABS: Rheumatoid Factor < 8.6 IU/mL (<12.0)
[2019-11-06 21:10] LABS: CCP Antibodies IgG/IgA 4 units (0-19)
== END ==
PROVIDERS: PCP Internal Medicine; Referring Provider Internal Medicine; Visit Provider Internal Medicine
DX: R79.9 Abnormal finding of blood chemistry, unspecified (principal); M15.4 Erosive (osteo)arthritis
CPT/HCPCS: 36415; 80053; 85025; 85651; 86140; 86200; 86430